=== PATIENT | female | born 1945 | race Caucasian/White ===

== ENCOUNTER 2016-12-01 17:35 | Observation (INO) | payer OTHER, BC ==
--- NOTE | 2016-12-01 18:11 | PDOC ---
History of Present Illness <Yusef Pizano - Last Filed: 12/01/16 22:04> - General History Source: Family, Old Records Exam Limitations: Dementia - History of Present Illness Initial Comments: 12/01/16 18:52 The patient is a 71 year old female, with a significant past medical history of dementia, diabetes and HTN, who presents to the emergency department for admission for dehydration, UTI, anorexia and violent aggressive behavior. The patient was recently in the ED on 11/29/2016 for decreased oral intake and was diagnosed with a UTI, prescribed her antibiotics. She was discharged same day to follow up with her PMD in order to arrange for a jail facility or visiting aide. The family states that the patient is very aggressive and refuses to eat. Upon presentation the patient is a poor historian. Allergies: None Past surgical history: None reported Social history: No alcohol, tobacco or drug use reported PMD - Dr. Maria M Chen <Krishna Allen - Last Filed: 12/01/16 23:11> - General Chief Complaint: Vomiting/Diarrhea Stated Complaint: PCP SENT/EVALUATION Time Seen by Provider: 12/01/16 18:10 Past History - Past Medical History Dementia: Yes Diabetes: Yes HTN: Yes - Psycho/Social/Smoking Cessation Hx Anxiety: No Suicidal Ideation: No Smoking History: Never smoked Have you smoked in the past 12 months: No Hx Alcohol Use: No Drug/Substance Use Hx: No Substance Use Type: None <Yusef Pizano - Last Filed: 12/01/16 22:04> <Krishna Allen - Last Filed: 12/01/16 23:11> - Past Medical History Allergies/Adverse Reactions: Allergies Allergy/AdvReac Type Severity Reaction Status Date / Time No Known Allergies Allergy Verified 12/01/16 17:43 Home Medications: Ambulatory Orders Lisinopril [Zestril] 0 mg PO DAILY 12/01/16 Memantine HCl [Namenda -] 0 mg PO DAILY 12/01/16 Metformin HCl [Metformin HCl ER] 0 mg PO DAILY 12/01/16 Rivastigmine [Exelon Patch 4.6MG/24 Hours -] 1 each TP DAILY 12/01/16 Review of Systems - Review of Systems Able to Perform ROS?: No Comments:: 12/01/16 18:52 ROS unattainable due to the patients dementia. <Krishna Allen - Last Filed: 12/01/16 23:11> *Physical Exam - Vital Signs Last Vital Signs Temp Pulse Resp BP Pulse Ox 98.5 F 103 H 18 133/70 96 12/01/16 17:39 12/01/16 17:39 12/01/16 17:39 12/01/16 17:39 12/01/16 17:39 <Yusef Pizano - Last Filed: 12/01/16 22:04> - Vital Signs Last Vital Signs Temp Pulse Resp BP Pulse Ox 98.5 F 103 H 18 133/70 96 12/01/16 17:39 12/01/16 17:39 12/01/16 17:39 12/01/16 17:39 12/01/16 17:39 - Physical Exam Comments: 12/01/16 23:11 GENERAL: Awake, alert, and oriented, in no acute distress HEAD: No signs of trauma, normocephalic, atraumatic EYES: PERRLA, EOMI, sclera anicteric, conjunctiva clear ENT: Auricles normal inspection, hearing grossly normal, nares patent, oropharynx clear without exudates. Moist mucosa NECK: Normal ROM, supple, no lymphadenopathy, JVD, or masses LUNGS: No distress, speaks full sentences, clear to auscultation bilaterally HEART: Regular rate and rhythm, normal S1 and S2, no murmurs, rubs or gallops, peripheral pulses normal and equal bilaterally. ABDOMEN: Soft, nontender, normoactive bowel sounds. No guarding, no rebound. No masses EXTREMITIES: Normal inspection, Normal range of motion, no edema. No clubbing or cyanosis. NEUROLOGICAL: Cranial nerves II through XII grossly intact. Normal speech, normal gait, no focal sensorimotor deficits SKIN: Warm, Dry, normal turgor, no rashes or lesions noted. <Krishna Allen - Last Filed: 12/01/16 23:11> ED Treatment Course - LABORATORY CBC & Chemistry Diagram: 12/01/16 18:00 12/01/16 21:10 <Yusef Pizano - Last Filed: 12/01/16 22:04> - LABORATORY CBC & Chemistry Diagram: 12/01/16 18:00 12/01/16 21:10 <Krishna Allen - Last Filed: 12/01/16 23:11> Medical Decision Making - Medical Decision Making 12/01/16 22:03 Dr. Prince was called regarding the patient at 9:40pm Dr. Prince was consulted regarding the patient at 9:41pm <Krishna Allen - Last Filed: 12/01/16 23:11> *DC/Admit/Observation/Transfer - Discharge Dispostion Admit: Yes - Attestations Physician Attestion: 12/01/16 18:10 I, Dr. Yusef Pizano, attest that this document has been prepared under my direction and personally reviewed by me in its entirety. I further attest, that it accurately reflects all work, treatment, procedures and medical decision -making performed by me. <Yusef Pizano - Last Filed: 12/01/16 22:04> - Attestations Scribe Attestion: 12/01/16 18:52 Documentation prepared by Krishna Allen, acting as territory sales manager medical for Yusef Pizano MD <Krishna Allen - Last Filed: 12/01/16 23:11> Diagnosis at time of Disposition: Advanced dementia - Discharge Dispostion Condition at time of disposition: Unchanged/Unknown - Referrals Referrals: Maria M Chen MD [Staff Physician] -
[2016-12-01] MEDS ORDERED: SODIUM CHLORIDE 1,000 ML IV SCH (18:15)
[2016-12-01 19:08] LABS: BASOPHIL 0.6 % (0-2.0); EOSINOPHIL 0.4 % (0-4.5); MCHC 31.9 g/dl (32.0-36.0); MEAN CELL VOLUME 84.6 fl (80-96); MEAN PLT VOLUME 9.8 fl (7.5-11.1); PLATELET COUNT 258 K/MM3 (134-434); RDW 13.9 % (11.6-15.6); WHITE BLOOD COUNT 9.5 K/mm3 (4.0-10.0)
[2016-12-01 19:17] LABS: URINE APPEARANCE SLCLOUDY; URINE BILIRUBIN NEGATIVE (NEGATIVE); URINE BLOOD NEGATIVE (NEGATIVE); URINE COLOR AMBER; URINE GLUCOSE (UA) NEGATIVE (NEGATIVE); URINE KETONE 2+ (NEGATIVE); URINE NITRITE NEGATIVE (NEGATIVE); URINE UROBILINOGEN 2.0 E.U/dl E.U./dl (0.2-1.0)
[2016-12-01 19:30] LABS: URINE LEUK ESTERASE TRACE (NEGATIVE); URINE PROTEIN 1+ (NEGATIVE)
[2016-12-01 19:32] LABS: URINE MUCUS MANY; URINE RBC 8 /hpf (0-3); URINE WBC 7 /hpf (3-5)
[2016-12-01 21:41] LABS: ALBUMIN 2.4 g/dl (3.4-5.0); ALK PHOS 34 U/L (45-117); ANION GAP 10 (8-16); BILIRUBIN,TOTAL 0.2 mg/dL (0.2-1.0); CO2 22 mmol/L (21-32); CREATININE 0.3 mg/dL (0.55-1.02); GLUCOSE,RANDOM 78 mg/dL (74-106); SGOT/AST 9 U/L (15-37); SGPT/ALT 13 U/L (12-78); TOT PROT 4.3 g/dl (6.4-8.2)
[2016-12-01 21:47] LABS: CALCIUM 6.2 mg/dL (8.5-10.1)
[2016-12-01] MEDS ORDERED: POTASSIUM CHLORIDE TABS 20 MEQ TABLET.ER (FP) PO ONE ×2 (22:01→22:38)
--- NOTE | 2016-12-01 22:10 | PN ---
<Chalino Rick - Last Filed: 12/01/16 22:10> Teaching Attending Note Name of Resident: Enrique Ortega ATTENDING PHYSICIAN STATEMENT I saw and evaluated the patient. I reviewed the resident's note and discussed the case with the resident. I agree with the resident's findings and plan as documented. SUBJECTIVE: OBJECTIVE: ASSESSMENT AND PLAN: <Marimar Pelletier - Last Filed: 12/02/16 00:30> Teaching Attending Note ATTENDING PHYSICIAN STATEMENT I saw and evaluated the patient. I reviewed the resident's note and discussed the case with the resident. I agree with the resident's findings and plan as documented. SUBJECTIVE: 71 yo F with a PMHx dementia, DM, HTN, anorexia, and violent aggressive behavior who presents with decreased PO intake and aggression as per family. Of note, patient was recently in ED and was sent home with antibiotics for UTI. Patients family states they are no longer able to take care of patient at their home. [facility] ([facility]) - [phone] OBJECTIVE: Last Vital Signs Temp Pulse Resp BP Pulse Ox 98.5 F 89 20 136/93 98 12/01/16 17:39 12/01/16 23:54 12/01/16 23:54 12/01/16 23:54 12/01/16 23:54 GENERAL: AOx1, in no acute distress. Dehydrated. HEENT: Atraumatic. PERRLA, EOMI. Dry mucosa. No JVD LUNGS: No distress, speaks full sentences, clear to auscultation bilaterally HEART: Regular rate and rhythm, normal S1 and S2, no murmurs, rubs or gallops, peripheral pulses normal and equal bilaterally. ABDOMEN: Soft, nontender, normoactive bowel sounds. No guarding, no rebound. No masses EXTREMITIES: Normal inspection, Normal range of motion, no edema. No clubbing or Cyanosis. NEUROLOGICAL: Cranial nerves II through XII grossly intact. Normal speech, normal gait, no focal sensorimotor deficits SKIN: Warm, Dry, poor turgor, no rashes or lesions noted. CBCD WBC 9.5 K/mm3 (4.0-10.0) 12/01/16 18:00 RBC 4.31 M/mm3 (3.60-5.2) 12/01/16 18:00 Hgb 11.6 GM/dL (10.7-15.3) 12/01/16 18:00 Hct 36.5 % (32.4-45.2) 12/01/16 18:00 MCV 84.6 fl (80-96) 12/01/16 18:00 MCHC 31.9 g/dl (32.0-36.0) L 12/01/16 18:00 RDW 13.9 % (11.6-15.6) 12/01/16 18:00 Plt Count 258 K/MM3 (134-434) 12/01/16 18:00 MPV 9.8 fl (7.5-11.1) 12/01/16 18:00 CMP Sodium 148 mmol/L (136-145) H 12/01/16 21:10 Potassium 2.8 mmol/L (3.5-5.1) L* 12/01/16 21:10 Chloride 116 mmol/L (98-107) H D 12/01/16 21:10 Carbon Dioxide 22 mmol/L (21-32) D 12/01/16 21:10 Anion Gap 10 (8-16) 12/01/16 21:10 BUN 6 mg/dL (7-18) L D 12/01/16 21:10 Creatinine 0.3 mg/dL (0.55-1.02) L D 12/01/16 21:10 Creat Clearance w eGFR > 60 (>60) 12/01/16 21:10 Calcium 6.2 mg/dL (8.5-10.1) L* D 12/01/16 21:10 Total Bilirubin 0.2 mg/dL (0.2-1.0) D 12/01/16 21:10 AST 9 U/L (15-37) L 12/01/16 21:10 ALT 13 U/L (12-78) D 12/01/16 21:10 Alkaline Phosphatase 34 U/L (45-117) L D 12/01/16 21:10 Total Protein 4.3 g/dl (6.4-8.2) L D 12/01/16 21:10 Albumin 2.4 g/dl (3.4-5.0) L D 12/01/16 21:10 ASSESSMENT AND PLAN: 71 yo F with a PMHx of dementia, DM, HTN, anorexia, and violent aggressive behavior who presents with decreased PO intake and aggression. 1.) AMS most likely due to worsening dementia vs delirium -Continue with treatment of UTI -Urine culture -Psych consult -Social consult for worsening dementia, possible placement -Continue with exelon patch -Patient noncompliant with Namenda -Check b12 folate -Check TSH 2.) Hypokalemia -Check stat Mg -Replete K+ -Check ECG 3.) HTN -Continue home meds 4.) NIDM -Continue metformin -Fingersticks -Nutrition consult -Insulin sliding scale 5.) Hypernatriemia -Free H20 deficit of 1.4 Liters -Mild -Continue with IVF -Check urine osmolality -Check urine lytes -D5W at a rate of 50/hr not to decrease the serum sodium over 10 milliequivalents in 24 hours 6.) Severe malnourishment -Nutrition consult 7.) Dehdyrationn -Gentle IVF DVT ppx -heparin 5000 Q8 Documentation prepared by Marimar Pelletier acting as medical manager for Chalino Rick D.O.
--- NOTE | 2016-12-01 22:58 | MSN ---
Admitting History and Physical - Admission Chief Complaint: Worsening behavioral symptoms History of Present Illness: Celina Mendes is a 71 yo female with PMHx of Advanced Dementia, HTN, DM who presents to the ED with her family for worsening behavioral symptoms. Pt was doing well until two weeks ago when she started to become aggressive towards her caregiver and grandchildren. Over the last four days she refuses to eat. Family reports they were only able to convince her to eat a few spoons of rice and MAXINE (vitamin drink) during this time. Pt was recently seen in the Emergency Department (11/29/16) for UTI. Family reports they do not know when her UTI symptoms started; but states pt has been using the bathroom every 20mins during the night over the past week. Pt was discharged on Macrobid 100mg BID. Pt refuses to take medication, but family states she has been getting her doses after much convincing. At this time pt complains of dysuria. Denies DANIELLE/F/C /Abd Pain/hematuria. ER Course: KCl 40 meq once History Source: Family Member Limitations to Obtaining History: Dementia - Past Medical History POLYSOMNOGRAPHER: Yes: Dementia Cardiovascular: Yes: HTN Endocrine: Yes: Diabetes Mellitus - Smoking History Smoking history: Never smoked Have you smoked in the past 12 months: No - Alcohol/Substance Use Hx Alcohol Use: No Home Medications - Allergies Allergies/Adverse Reactions: Allergies Allergy/AdvReac Type Severity Reaction Status Date / Time No Known Allergies Allergy Verified 12/01/16 17:43 - Home Medications Home Medications: Ambulatory Orders Lisinopril [Zestril] 0 mg PO DAILY 12/01/16 Memantine HCl [Namenda -] 0 mg PO DAILY 12/01/16 Metformin HCl [Metformin HCl ER] 0 mg PO DAILY 12/01/16 Rivastigmine [Exelon Patch 4.6MG/24 Hours -] 1 each TP DAILY 12/01/16 Physical Examination Vital Signs: Vital Signs Temperature 98.5 F 12/01/16 17:39 Pulse Rate 103 H 12/01/16 17:39 Respiratory Rate 18 12/01/16 17:39 Blood Pressure 133/70 12/01/16 17:39 O2 Sat by Pulse Oximetry (%) 96 12/01/16 17:39 Constitutional: Yes: Calm, Cachectic, Thin Eyes: Yes: Conjunctiva Clear, EOM Intact HENT: Yes: Atraumatic, Normocephalic Cardiovascular: Yes: Regular Rate and Rhythm Respiratory: Yes: Regular, CTA Bilaterally Gastrointestinal: Yes: Normal Bowel Sounds, Soft. No: Tenderness Edema: No Peripheral Pulses WNL: Yes Peripheral Pulses: Left Radial: 2+, Right Radial: 2+, Left Doralis Pedis: 2+, Right Dorsalis Pedis: 2+ Neurological: Yes: Alert. No: Oriented Psychiatric: Yes: Alert. No: Oriented Labs: CBC, BMP 12/01/16 18:00 12/01/16 21:10 Imaging - Results Chest X-ray: Other (No new images reviewed at this time) Assessment/Plan 71 yo F with PMHx of Advanced Dementia, HTN, DM presented to the ED with her family for worsening behavioral symptoms. UTI -Continue Macrobid 100mg BID x3 days; if pt non-compliant IV Rocephin -UCx pending Dementia -Behavioral disturbance likely 2/2 UTI -Start Home Meds, confirm dose with pharmacy -Namenda 5mg -Exelon Patch 4.6mg DM -Hold Metformin 1000mg -Insulin sliding scale HTN -Lisinopril 2.5mg FEN -Monitor Electrolytes -Replete K -NS Social Work -Placement in halfway or VNS
--- NOTE | 2016-12-01 23:08 | HP ---
CHIEF COMPLAINT: poor po intake, aggressive behavior PCP: Maria M Delgado HISTORY OF PRESENT ILLNESS: 71 yr old american speaking woman with dementia with aggressive behavior, NIDDM, HTN, brought in by family for decreased oral intake due to loss of appetite, aggressive behavior towards family and refusal in medication compliance for the past 4 days. She was recently seen in the ED and found to have UTI, she was discharged with macrobid 100mg po BID on 11/29. Family noticed for the last week she has been having frequent urination with nocturia. Since yesterday she has been having increased burping and "gases" in her abdomen. Patient denies abdominal pain, hematuria, vomiting, fever, diarrhea/constipation , nausea, incontinence. She is alert, oriented to person, month, year, age birthday, city, recognizes sister and nieces, not to place, day/date/condition. She was brought in on the 11/29 due to decreased oral intake and aggressive behavior. She lives with her sister and her nieces help take care of her, her several years ago. She has two children in [place]. She does not have a healthcare proxy and per Dr. Chen, she does not have capacity. Over the last 2 months she has lost significant amount weight and overall decline in oral intake. She has not had a colonoscopy. ER course was notable for: (1) EKG (2) hypokalemia Recent Travel: none PAST MEDICAL HISTORY: NIDDM - controlled as per family HTN Dementia PAST SURGICAL HISTORY: none Social History: Smoking: never Alcohol: denies Drugs: denies Family History: Mother with dementia, two aunts with dementia sister with HTN and DM denies family history of cancer. Allergies No Known Allergies Allergy (Verified 12/01/16 17:43) HOME MEDICATIONS: Home Medications Medication Instructions Recorded Lisinopril [Zestril] 0 mg PO DAILY 12/01/16 Memantine HCl [Namenda -] 0 mg PO DAILY 12/01/16 Metformin HCl [Metformin HCl ER] 0 mg PO DAILY 12/01/16 Rivastigmine [Exelon Patch 1 each TP DAILY 12/01/16 4.6MG/24 Hours -] REVIEW OF SYSTEMS CONSTITUTIONAL: Present: loss of appetite, weight change Absent: fever, chills, diaphoresis, generalized weakness, malaise, HEENT: Absent: rhinorrhea, nasal congestion, throat pain, throat swelling, difficulty swallowing, mouth swelling, ear pain, eye pain, visual changes CARDIOVASCULAR: Absent: chest pain, syncope, palpitations, irregular heart rate, lightheadedness , peripheral edema RESPIRATORY: Absent: cough, shortness of breath, dyspnea with exertion, orthopnea, wheezing, stridor, hemoptysis GASTROINTESTINAL: Absent: abdominal pain, abdominal distension, nausea, vomiting, diarrhea, constipation, melena, hematochezia GENITOURINARY: Present: dysuria, frequency, Absent: urgency, hesitancy, hematuria, flank pain, genital pain MUSCULOSKELETAL: Absent: myalgia, arthralgia, joint swelling, back pain, neck pain SKIN: Absent: rash, itching, pallor HEMATOLOGIC/IMMUNOLOGIC: Absent: easy bleeding, easy bruising, lymphadenopathy, frequent infections ENDOCRINE: Present: cold intolerance Absent: unexplained weight gain, unexplained weight loss, heat intolerance, NEUROLOGIC: Present:mental status changes, Absent: headache, focal weakness or paresthesias, dizziness, unsteady gait, seizure, bladder or bowel incontinence PHYSICAL EXAMINATION Vital Signs - 24 hr 12/01/16 17:39 Temperature 98.5 F Pulse Rate 103 H Respiratory 18 Rate Blood Pressure 133/70 O2 Sat by Pulse 96 Oximetry (%) GENERAL: cachectic elderly woman, Awake, alert, in no acute distress. HEAD: Normal with no signs of trauma. bitemporal wasting EYES: Pupils equal, round and reactive to light, extraocular movements intact, sclera anicteric, conjunctiva clear. No lid lag. EARS, NOSE, THROAT: Ears normal, nares patent, oropharynx clear without exudates /lesions. dry mucous membranes. NECK: Normal range of motion, supple without lymphadenopathy, JVD, or masses. no carotid bruits LUNGS: Breath sounds equal, clear to auscultation bilaterally. No wheezes, and no crackles. No accessory muscle use. HEART: Regular rate and rhythm, normal S1 and S2 without murmur, rub or gallop. ABDOMEN: Soft, nontender, not distended, normoactive bowel sounds, no guarding, no rebound, no masses. No hepatomegaly or splenomegaly. MUSCULOSKELETAL: Normal range of motion at all joints. No bony deformities or tenderness. No CVA tenderness. UPPER EXTREMITIES: 2+ pulses, warm, well-perfused. No cyanosis. No clubbing. No peripheral edema. LOWER EXTREMITIES: 2+ pulses, warm, well-perfused. No calf tenderness. No peripheral edema. NEUROLOGICAL: Cranial nerves II-XII intact. Normal speech. Normal gait. PSYCHIATRIC: Cooperative. Good eye contact. Appropriate mood and affect. SKIN: Warm, dry, poor turgor, no rashes or lesions noted, normal capillary refill. Laboratory Results - last 24 hr 12/01/16 12/01/16 12/01/16 18:00 18:00 19:00 WBC 9.5 RBC 4.31 Hgb 11.6 Hct 36.5 MCV 84.6 MCHC 31.9 L RDW 13.9 Plt Count 258 MPV 9.8 Neutrophils % 65.0 Lymphocytes % 26.5 Monocytes % 7.5 Eosinophils % 0.4 Basophils % 0.6 Sodium Cancelled Potassium Cancelled Chloride Cancelled Carbon Dioxide Cancelled Anion Gap Cancelled BUN Cancelled Creatinine Cancelled Creat Clearance w eGFR Cancelled Random Glucose Cancelled Calcium Cancelled Total Bilirubin Cancelled AST Cancelled ALT Cancelled Alkaline Phosphatase Cancelled Total Protein Cancelled Albumin Cancelled Lipase Cancelled Urine Color Agata Urine Appearance Slcloudy Urine pH 5.0 Ur Specific [place] 1.028 Urine Protein 1+ H Urine Glucose (UA) Negative Urine Ketones 2+ H Urine Blood Negative Urine Nitrite Negative Urine Bilirubin Negative Urine Urobilinogen 2.0 e.u/dl H Ur Leukocyte Esterase Trace H D Urine RBC 8 Urine WBC 7 Ur Epithelial Cells Rare Urine Mucus Many 12/01/16 21:10 WBC RBC Hgb Hct MCV MCHC RDW Plt Count MPV Neutrophils % Lymphocytes % Monocytes % Eosinophils % Basophils % Sodium 148 H Potassium 2.8 L* Chloride 116 H D Carbon Dioxide 22 D Anion Gap 10 BUN 6 L D Creatinine 0.3 L D Creat Clearance w eGFR > 60 Random Glucose 78 D Calcium 6.2 L* D Total Bilirubin 0.2 D AST 9 L ALT 13 D Alkaline Phosphatase 34 L D Total Protein 4.3 L D Albumin 2.4 L D Lipase 125 Urine Color Urine Appearance Urine pH Ur Specific [place] Urine Protein Urine Glucose (UA) Urine Ketones Urine Blood Urine Nitrite Urine Bilirubin Urine Urobilinogen Ur Leukocyte Esterase Urine RBC Urine WBC Ur Epithelial Cells Urine Mucus ASSESSMENT/PLAN: 71 yr old woman with dementia, HTN, NIDDM, being treated for UTI, brought in by family for poor po intake and aggressive behavior admitted for hypokalemia/ hypocalcemia/hypernatremia/hypomag and dehydration. - labs 11/29 did not show hypoalbunemia/hypocalcemia/hypomag #Altered mental status secondary to progression of dementia vs delirium due to UTI - r/o metabolic causes; TSH, vitamin B12, folate - psych consult for medication recommendations for agitation - discuss with social work for penitentiary placement/home assistance; family no longer feels able to care for patient at home #UTI - change from bactrim to rocephin 1gm ivpb daily due to po noncompliance - f/u urine culture #Hypokalemia - repleted in ED, 40meq kdur po #Hypomag - 1g mag sulfate ivpb - magox po 400mg daily #Hypocalcemia - oscal 250/125 1 tablet po daily #Hypernatremia - likely due to poor po intake - D5W at a rate of 50ml/hr not to decrease the serum sodium over 10 milliequivalents in 24 hours - urine osm/lytes for further evalutation #Dementia - Namenda 5mg po daily - Exelon patch apply daily - fall risk precautions #NIDDM - metformin 1000mg 1tablet po daily - BGM ACHS - NISS ACHS #HTN - lisinopril 5mg po daily #Severe malnutrition - nutrition consult #belching - mylicon 80mg po once Diet: low sodium/diabetic DVT: heparin Visit type - Emergency Visit Emergency Visit: Yes ED Registration Date: 12/02/16 Care time: The patient presented to the Emergency Department on the above date and was hospitalized for further evaluation of their emergent condition. - New Patient This patient is new to me today: Yes Date on this admission: 12/02/16 - Critical Care Critical Care patient: No
[2016-12-02] MEDS ORDERED: MAGNESIUM SULF 50% (8.12 MEQ/2 ML-1 GM VIAL) IVPB ONE (00:07)
[2016-12-02] MEDS ORDERED: MAGNESIUM OXIDE 400 MG TABLET (FP) PO ONE (00:09)
[2016-12-02] MEDS ORDERED: MAG HYDROX/AL HYDROX/SIMETH 30 ML UNIT-DOSE CUP PO ONE (00:10)
[2016-12-02] MEDS ORDERED: MAGNESIUM OXIDE 400 MG TABLET (FP) ONE (00:16)
[2016-12-02 01:07] VITALS: BMI 18.5
[2016-12-02] MEDS: cefTRIAXone 1 GM/50 ML BAG (PRE-DOCKED) IVPB SCH ×2 (01:37→09:07)
[2016-12-02] MEDS ORDERED: SIMETHICONE 80 MG TAB.CHEW (FP) PO ONE (04:09)
[2016-12-02] MEDS ORDERED: DEXTROSE 5%-WATER - 1,000 ML IV SCH (04:45)
[2016-12-02] MEDS: HEPARIN NA (PORCINE) 5,000 UNITS/ML 1ML VIAL SQ SCH ×2 (05:58→14:13)
[2016-12-02] MEDS: INSULIN SLIDING SCALE (NOVOLOG) 1 VIAL SQ SCH ×3 (06:00→16:39)
[2016-12-02 09:08] LABS: CALCIUM 9.1 mg/dL (8.5-10.1); COCKROFT - GAULT 62.2115; CREATININE 0.6 mg/dL (0.55-1.02); MAGNESIUM 2.3 mg/dL (1.8-2.4)
[2016-12-02] MEDS ORDERED: MEMANTINE HCL 5 MG TABLET (UD) PO SCH (10:00)
[2016-12-02] MEDS ORDERED: PATIENT'S OWN MEDICATION (NON-FORMULARY) (Rivastigmine 1 EACH) TP SCH (10:00)
[2016-12-02] MEDS ORDERED: CALCIUM 250MG/VIT-D 125 UNITS 1 COMBO TABLET PO SCH (10:00)
[2016-12-02] MEDS ORDERED: ENOXAPARIN NA (PORCINE) 40 MG/0.4 ML DISP.SYRIN SQ SCH (10:00)
[2016-12-02] MEDS ORDERED: MAGNESIUM OXIDE 400 MG TABLET (FP) PO SCH (10:00)
[2016-12-02] MEDS ORDERED: LISINOPRIL 5 MG TABLET (FP) PO SCH (10:00)
[2016-12-02] MEDS ORDERED: INSULIN (NOVOLOG) ASPART 100 UNITS/ML 10ML VIAL ONE ×2 (11:36→16:35)
--- NOTE | 2016-12-02 13:27 | EKG ---
Test Reason : Blood Pressure : / mmHG Vent. Rate : 092 BPM Atrial Rate : 092 BPM P-R Int : 134 ms QRS Dur : 074 ms QT Int : 364 ms P-R-T Axes : 017 064 031 degrees QTc Int : 450 ms NORMAL SINUS RHYTHM NORMAL ECG WHEN COMPARED WITH ECG OF 29-NOV-2016 17:10, PREMATURE VENTRICULAR COMPLEXES ARE NO LONGER PRESENT Confirmed by JOSEFA PAREDES MD ([id number]) on 12/02/2016 1:26:34 PM Referred By: Confirmed By:JOSEFA PAREDES MD
[2016-12-02 13:59] VITALS: BP 136/57; PULSE 88; TEMP 97.7
--- NOTE | 2016-12-02 15:18 | DS ---
Physical Exam: SUBJECTIVE: Patient seen and examined Resting in chair NAD. Afebrile and demodynamically satble. No acute events. Has been calm and cooperative. observed walking in hallway w/o problem. alert and interactive but confused. does not know where she is, wrong about her age and year. This is mental baseline per family. Eating all her meals. denies dysuria, flank pain, genita pain, abd pain, frequency, chest pain, sob, h/a, f/c. OBJECTIVE: Vital Signs Period Temp Pulse Resp BP Sys/Foss Pulse Ox Last 24 Hr 97.7 F-98.3 F 79-89 20-20 120-148/56-93 98-98 PHYSICAL EXAM GENERAL: The patient is pleasant, awake, alert, disoriented, in no acute distress. HEAD: Normal with no signs of trauma. EYES: PERRL, extraocular movements intact, sclera anicteric, conjunctiva clear. ENT: moist mucous membranes. NECK: supple. LUNGS: Breath sounds equal, clear to auscultation bilaterally HEART: Regular rate and rhythm, S1, S2 ABDOMEN: Soft, nontender, nondistended, normoactive bowel sounds, no cva tenderness EXTREMITIES: 2+ pulses, warm, well-perfused, no edema. NEUROLOGICAL: Cranial nerves II through XII grossly intact. Normal speech, normal gait. PSYCH: Normal mood, normal affect. SKIN: Warm, dry LABS Laboratory Results - last 24 hr 12/02/16 12/02/16 12/02/16 05:55 06:00 06:00 Sodium Potassium Chloride Carbon Dioxide Anion Gap BUN Creatinine POC Glucometer 112 Random Glucose Calcium Magnesium Vitamin B12 Serum Folate Urine Osmolality 292 L Ur Random Sodium 108 Ur Random Potassium 9.0 Ur Random Chloride 113 12/02/16 12/02/16 12/02/16 07:40 07:40 07:40 Sodium 141 Potassium 4.0 D Chloride 103 D Carbon Dioxide 27 D Anion Gap 11 BUN 6 L Creatinine 0.6 D POC Glucometer Random Glucose 147 H D Calcium 9.1 D Magnesium 2.3 D Vitamin B12 887 Cancelled Serum Folate 25 H Cancelled Urine Osmolality Ur Random Sodium Ur Random Potassium Ur Random Chloride 12/02/16 11:34 Sodium Potassium Chloride Carbon Dioxide Anion Gap BUN Creatinine POC Glucometer 174 Random Glucose Calcium Magnesium Vitamin B12 Serum Folate Urine Osmolality Ur Random Sodium Ur Random Potassium Ur Random Chloride HOSPITAL COURSE: Date of Admission:12/01/16 This is a 71 yr F with pmh of dementia NIDDM and HTN, who visited ER 3 d ago for uti and was sent home on macrobid, now brought in by family for decreased oral intake due to loss of appetite, aggressive behavior towards family and refusal in medication compliance for the past 4 days. She was placed in obs for mildly altered mental status. labs showed no uti and her mental state was baseline confused but calm and pleasant, her appetite was adequate. Her low potassium was repleted. She was discharged home with VNS and instructed to finish course of macrobid previously prescribed. Date of Discharge: 12/02/16 Minutes to complete discharge: 45 (na) Discharge Summary Reason For Visit: URINARY TRACT INFECTION ADVANCED DEMENTIA ALTERED Current Active Problems Advanced dementia (Acute) Condition: Stable - Instructions Diet, Activity, Other Instructions: You were in the hospital to make sure your lack of appetite and behavioral changes were not due to infection. Based on out findings, your urinary infection appears resolved but finish antibiotic Macrobid at home. You can restart other home medication. Follow up with primary care doctor in 1 week. Return to hospital if severe symptoms occur Usted estaba en el hospital para asegurarse de que cyr falta de apetito y cambios de comportamiento no se deban a la infeccin. Sobre la base de los resultados, cyr infeccin urinaria parece resuelto, tucker terminar antibitico Macrobid en casa. Puede reiniciar otra medicacin en el hogar. Seguimiento con el mdico de atencin primaria en 1 semana. Regreso al hospital si ocurren sntomas severos Referrals: Maria M Chen MD [Staff Physician] - 1 Week Disposition: VNS/HOME HEALTH CARE - Home Medications Comprehensive Discharge Medication List: Ambulatory Orders Exelon Patch 9.5 mg/24 Hours - 9.5 TD 12/02/16 Lisinopril [Zestril] 20 mg PO DAILY 12/02/16 Memantine HCl [Namenda -] 10 mg PO BID #0 tab 12/02/16 Metformin HCl 500 mg PO BID 12/02/16 Multivit-Min/Iron Fum/Folic AC [Udrnj-Fkiplop-Jwcrmodu Tablet] 1 tab PO DAILY Vitamin E 400 unit PO DAILY 12/02/16 Problem List - Problems (1) Advanced dementia Code(s): F03.90 - UNSPECIFIED DEMENTIA WITHOUT BEHAVIORAL DISTURBANCE (2) HTN (hypertension) Code(s): I10 - ESSENTIAL (PRIMARY) HYPERTENSION (3) Diabetes Code(s): E11.9 - TYPE 2 DIABETES MELLITUS WITHOUT COMPLICATIONS This patient is new to me today: Yes Date on this admission: 12/02/16 Emergency Visit: Yes ED Registration Date: 12/01/16 Care time: The patient presented to the Emergency Department on the above date and was hospitalized for further evaluation of their emergent condition. Critical Care patient: No - Discharge Referral Referred to [facility] Med P.C.: No
--- NOTE | 2016-12-02 19:02 | PN ---
Teaching Attending Note Name of Resident: Bambi Archibald ATTENDING PHYSICIAN STATEMENT I saw and evaluated the patient. I reviewed the resident's note and discussed the case with the resident. I agree with the resident's findings and plan as documented. Patient is demented , does not know where she is. Vital Signs Temperature 97.7 F 12/02/16 13:57 Pulse Rate 88 12/02/16 13:57 Respiratory Rate 20 12/02/16 08:00 Blood Pressure 136/57 12/02/16 13:57 O2 Sat by Pulse Oximetry (%) 98 12/02/16 08:00 CBCD WBC 9.5 K/mm3 (4.0-10.0) 12/01/16 18:00 RBC 4.31 M/mm3 (3.60-5.2) 12/01/16 18:00 Hgb 11.6 GM/dL (10.7-15.3) 12/01/16 18:00 Hct 36.5 % (32.4-45.2) 12/01/16 18:00 MCV 84.6 fl (80-96) 12/01/16 18:00 MCHC 31.9 g/dl (32.0-36.0) L 12/01/16 18:00 RDW 13.9 % (11.6-15.6) 12/01/16 18:00 Plt Count 258 K/MM3 (134-434) 12/01/16 18:00 MPV 9.8 fl (7.5-11.1) 12/01/16 18:00 CMP Sodium 141 mmol/L (136-145) 12/02/16 07:40 Potassium 4.0 mmol/L (3.5-5.1) D 12/02/16 07:40 Chloride 103 mmol/L (98-107) D 12/02/16 07:40 Carbon Dioxide 27 mmol/L (21-32) D 12/02/16 07:40 Anion Gap 11 (8-16) 12/02/16 07:40 BUN 6 mg/dL (7-18) L 12/02/16 07:40 Creatinine 0.6 mg/dL (0.55-1.02) D 12/02/16 07:40 Creat Clearance w eGFR > 60 (>60) 12/01/16 21:10 Random Glucose 147 mg/dL (74-106) H D 12/02/16 07:40 Calcium 9.1 mg/dL (8.5-10.1) D 12/02/16 07:40 Total Bilirubin 0.2 mg/dL (0.2-1.0) D 12/01/16 21:10 AST 9 U/L (15-37) L 12/01/16 21:10 ALT 13 U/L (12-78) D 12/01/16 21:10 Alkaline Phosphatase 34 U/L (45-117) L D 12/01/16 21:10 Total Protein 4.3 g/dl (6.4-8.2) L D 12/01/16 21:10 Albumin 2.4 g/dl (3.4-5.0) L D 12/01/16 21:10 Home Medications Medication Instructions Recorded Exelon Patch 9.5 mg/24 Hours - 9.5 TD 12/02/16 Lisinopril [Zestril] 20 mg PO DAILY 12/02/16 Memantine HCl [Namenda -] 10 mg PO BID #0 tab 12/02/16 Metformin HCl 500 mg PO BID 12/02/16 Multivit-Min/Iron Fum/Folic AC 1 tab PO DAILY 12/02/16 [Pjekv-Btmzynm-Uccpvvhz Tablet] Vitamin E 400 unit PO DAILY 12/02/16 ASSESSMENT AND PLAN: 71 yo F with a PMHx of dementia, DM, HTN, anorexia, and violent aggressive behavior who presents with decreased PO intake and aggression. # Worsening dementia with hx of dementia continue meds # Hypokalemia improved # HTN Continue home meds # NIDM Continue metformin # acute Hypernatriemia improved post IVF # Severe malnourishment # s/p Acute Dehdyrationn s/p IVF improved will discharge patient home with VNS services
== END 2016-12-02 18:04 | disposition home health service (06) ==
LOC: JER 17:35 → INTOOBSV 22:05 → UNDOADMOB 22:05 → JERBED 22:05 → UNDOADMIN 23:47 → JERBED 12-02 01:32 → J6S 12-02 01:32 → JERBED 12-02 15:17
PROVIDERS: ADMIT Internal Medicine; ATTEND Internal Medicine
PROC: 3E03329 Introduction of Other Anti-infective into Peripheral Vein, Percutaneous Approach (ICD-10-PCS; principal; 2016-12-02)
PROC: 3E013GC Introduction of Other Therapeutic Substance into Subcutaneous Tissue, Percutaneous Approach (ICD-10-PCS; 2016-12-02)
PROC: 3E033GC Introduction of Other Therapeutic Substance into Peripheral Vein, Percutaneous Approach (ICD-10-PCS; 2016-12-02)
PROC: 3E0337Z Introduction of Electrolytic and Water Balance Substance into Peripheral Vein, Percutaneous Approach (ICD-10-PCS; 2016-12-02)
DX: F03.91 Unspecified dementia, unspecified severity, with behavioral disturbance (principal); I10 Essential (primary) hypertension; E11.9 Type 2 diabetes mellitus without complications; R63.0 Anorexia; R45.6 Violent behavior; N39.0 Urinary tract infection, site not specified; E87.6 Hypokalemia; R41.82 Altered mental status, unspecified; E87.1 Hypo-osmolality and hyponatremia; E43 Unspecified severe protein-calorie malnutrition; Z68.1 Body mass index [BMI] 19.9 or less, adult; E86.0 Dehydration; E87.0 Hyperosmolality and hypernatremia; R14.2 Eructation; E83.51 Hypocalcemia; E83.42 Hypomagnesemia
CPT/HCPCS: 36415; 70450-TC; 71010-TC; 80048; 80053; 81003; 81015; 82436; 82607; 82746; 83690; 83735; 83935; 84133; 84300; 85025; 85610; 87086; 93005; 93010; 96360; 99282-25; 99283-25; G0378; J1644

== ENCOUNTER 2016-12-25 12:15 | Emergency (ER) | payer OTHER, BC ==
[2016-12-25 12:33] VITALS: TEMP 98.5; BMI 21.2
[2016-12-25 13:28] LABS: URINE APPEARANCE CLEAR; URINE BILIRUBIN NEGATIVE (NEGATIVE); URINE BLOOD NEGATIVE (NEGATIVE); URINE COLOR LTYELLOW; URINE GLUCOSE (UA) 2+ (NEGATIVE); URINE KETONE NEGATIVE (NEGATIVE); URINE LEUK ESTERASE NEGATIVE (NEGATIVE); URINE NITRITE NEGATIVE (NEGATIVE); URINE PROTEIN NEGATIVE (NEGATIVE); URINE UROBILINOGEN NEGATIVE E.U./dl (0.2-1.0)
--- NOTE | 2016-12-25 13:39 | PDOC ---
History of Present Illness - General Chief Complaint: Vaginal Bleeding Stated Complaint: BLOOD IN URINE Time Seen by Provider: 12/25/16 12:50 - History of Present Illness Initial Comments: 12/25/16 13:39 CHIEF COMPLAINT: vaginal bleeding HISTORY OF PRESENT ILLNESS: 71 yo F with hx of dementia, diabetes and HTN presents to ED with vaginal bleeding since yesterday. Per patient's sister, there was "just a little bleeding yesterday" but today "there was a lot of blood when she was showering." Patient has no complaints at this time and denies any pain, shortness of breast, dizziness, headache, lightheadnesses, nausea, vomiting, rectal bleeding. No recent travel or sick contacts. PAST MEDICAL HISTORY: as per HPI SOCIAL HISTORY: Denies tobacco, alcohol, illicit drug use. SURGICAL HISTORY: Denies ALLERGIES: No known drug allergies REVIEW OF SYSTEMS General/Constitutional: Denies fever or chills. Denies weakness, weight change. HEENT: Denies change in vision. Denies ear pain or discharge. Denies sore throat. Cardiovascular: Denies chest pain or shortness of breath. Respiratory: Denies cough, wheezing, or hemoptysis. Gastrointestinal: Denies nausea, vomiting, diarrhea or constipation. Denies rectal bleeding. Genitourinary: Vaginal bleeding. Denies dysuria, frequency, or change in urination. Musculoskeletal: Denies joint or muscle swelling or pain. Denies neck or back pain. Skin and breasts: Denies rash or easy bruising. Neurologic: Denies headache, vertigo, loss of consciousness, or loss of sensation. PHYSICAL EXAM General Appearance: Well-appearing, appropriately dressed. No apparent distress. HEENT: EOMI, PERRLA, normal ENT inspection, normal voice, TMs normal, pharynx normal. No conjunctival pallor. No photophobia, scleral icterus. Neck: Supple. Trachea midline. No tenderness, rigidity, carotid bruit, stridor , lymphadenopathy, or thyromegaly. Respiratory/Chest: Lungs CTAB. Cardiovascular: RRR. S1, S2. Gastrointestinal/Abdominal: Normal bowel sounds. Abdomen soft, non-distended. No tenderness or rebound tenderness. No organomegaly, pulsatile mass, guarding , hernia, hepatomegaly, splenomegaly. Lymphatic: No adenopathy, tenderness. Musculoskeletal/Extremities: Normal inspection. FROM of all extremities, normal capillary refill. Pelvis Stable. No CVA tenderness. No tenderness to extremities, pedal edema, swelling, erythema or deformity. Integumentary: Appropriate color, dry, warm. No cyanosis, erythema, jaundice or rash Neurologic: admissions assistant II-XII intact. Fully oriented, alert. Appropriate mood/affect. Motor strength 5/5. No appreciable EOM palsy, facial droop or sensory deficit. 12/25/16 13:44 Past History - Past Medical History Allergies/Adverse Reactions: Allergies Allergy/AdvReac Type Severity Reaction Status Date / Time No Known Allergies Allergy Verified 12/01/16 17:43 Home Medications: Ambulatory Orders Lisinopril [Zestril] 20 mg PO DAILY 12/02/16 Memantine HCl [Namenda -] 10 mg PO BID #0 tab 12/02/16 Metformin HCl 500 mg PO BID 12/02/16 Vitamin E 400 unit PO DAILY 12/02/16 Dementia: Yes Diabetes: Yes HTN: Yes - Psycho/Social/Smoking Cessation Hx Anxiety: No Suicidal Ideation: No Smoking History: Never smoked Have you smoked in the past 12 months: No Information on smoking cessation initiated: No Hx Alcohol Use: No Drug/Substance Use Hx: No Substance Use Type: None *Physical Exam - Vital Signs Last Vital Signs Temp Pulse Resp BP Pulse Ox 98.5 F 97 H 18 129/52 100 12/25/16 12:31 12/25/16 12:31 12/25/16 12:31 12/25/16 12:31 12/25/16 12:31 ED Treatment Course - LABORATORY CBC & Chemistry Diagram: 12/25/16 14:00 12/25/16 14:00 Medical Decision Making - Medical Decision Making 71 yo F with hx of dementia, diabetes and HTN presents to ED with vaginal bleeding since yesterday. Exam unremarkable, no bleeding on exam. -CBC, CMP -UA, UCx UA negative for blood. Labs unremarkable. Advised patient and family to f/u with CUSTOM FRAME ASSEMBLER for further evaluation. Patient and family verbalized understanding and agree to plan. *DC/Admit/Observation/Transfer Diagnosis at time of Disposition: Vaginal bleeding - Discharge Dispostion Disposition: HOME Admit: No - Referrals Referrals: Maria M Chen MD [Primary Care Provider] - - Patient Instructions Printed Discharge Instructions: DI for Vaginal Bleeding Additional Instructions: Please follow up with your primary care doctor and bulk picker by the end of the week. If you experience any dizziness, lightheadedness, nausea, severe vaginal bleeding (more than one soaked pad an hour),rectal bleeding, or any new or worsening symptoms, please return to the ER immediately.
[2016-12-25 14:09] LABS: BASOPHIL 0.2 % (0-2.0); EOSINOPHIL 0.3 % (0-4.5); MCH 27.3 pg (25.7-33.7); MCHC 32.2 g/dl (32.0-36.0); MEAN CELL VOLUME 84.7 fl (80-96); NEUTROPHILS 78.7 % (42.8-82.8); PLATELET COUNT 227 K/MM3 (134-434); RDW 13.5 % (11.6-15.6)
[2016-12-25 14:24] LABS: INR 1.05 (0.82-1.09); PROTHROMBIN TIME (PATIENT) 11.6 SEC (9.98-11.88)
[2016-12-25 14:36] LABS: ALBUMIN 3.8 g/dl (3.4-5.0); ALK PHOS 49 U/L (45-117); ANION GAP 10 (8-16); BILIRUBIN,TOTAL 0.2 mg/dL (0.2-1.0); CALCIUM 9.1 mg/dL (8.5-10.1); CO2 32 mmol/L (21-32); CREATININE 0.8 mg/dL (0.55-1.02); GLUCOSE,RANDOM 133 mg/dL (74-106); SGOT/AST 12 U/L (15-37); SGPT/ALT 21 U/L (12-78); TOT PROT 6.7 g/dl (6.4-8.2)
[2016-12-25 16:56] VITALS: BP 153/84; PULSE 107
== END 2016-12-25 16:51 | disposition home or self-care (01) ==
LOC: JER 12:15
DX: N93.8 Other specified abnormal uterine and vaginal bleeding (principal); I10 Essential (primary) hypertension; E11.9 Type 2 diabetes mellitus without complications; Z79.84 Long term (current) use of oral hypoglycemic drugs; F03.90 Unspecified dementia, unspecified severity, without behavioral disturbance, psychotic disturbance, mood disturbance, and anxiety
CPT/HCPCS: 36415; 76856-TC; 80053; 81003; 85025; 85610; 86850; 86900; 86901; 87086; 99284-25

== ENCOUNTER 2017-04-24 16:08 | Emergency (ER) | payer OTHER, BC ==
[2017-04-24 16:14] VITALS: BMI 16.1
--- NOTE | 2017-04-24 16:48 | PDOC ---
History of Present Illness - General History Source: Family (Daughter) Exam Limitations: No Limitations - History of Present Illness Initial Comments: 04/24/17 17:30 Patient is a 71 year old woman with a significant past medical history of dementia with aggressive behavior, NIDDM, HTN who presents to the ED with complaints of constipation beginning 3 days ago. Patient's daughter reports patient was unable to void bowels for three days while at home. Daughter states the patient has experienced diffuse abdominal pain secondary to constipation. Patients great grandson reports patient was found lying on the ground unresponsive complaining of abdominal pain. Patient's daughter reports patients hemorrhoids popped out while patient strained on toiled attempting to defecate. Family reports patient has only been given stool softener to relieve bowels. Denies chest pain, SOB. Denies nausea, fever. Denies chills, vomiting. Denies any other symptoms. Allergies: None Social history: No smoking, No alcohol. No drugs. Mother with dementia, two aunts with dementia sister with HTN and DM. Surgical history: None PMD: Dr. Chen <Tony Benavides - Last Filed: 04/24/17 17:29> <Yusef Pizano - Last Filed: 04/25/17 11:07> - General Chief Complaint: Weakness Stated Complaint: bladder distended,constipation EVALUATION Time Seen by Provider: 04/24/17 16:48 Past History <Tony Benavides - Last Filed: 04/24/17 17:29> - Past Medical History Dementia: Yes Diabetes: Yes HTN: Yes - Suicide/Smoking/Psychosocial Hx Anxiety: No Suicidal Ideation: No Smoking History: Never smoked Have you smoked in the past 12 months: No Information on smoking cessation initiated: No Hx Alcohol Use: No Drug/Substance Use Hx: No Substance Use Type: None <Yusef Pizano - Last Filed: 04/25/17 11:07> - Past Medical History Allergies/Adverse Reactions: Allergies Allergy/AdvReac Type Severity Reaction Status Date / Time No Known Allergies Allergy Verified 04/24/17 16:10 Home Medications: Ambulatory Orders Lisinopril [Zestril] 20 mg PO DAILY 12/02/16 Memantine HCl [Namenda -] 10 mg PO BID #0 tab 12/02/16 Metformin HCl 500 mg PO BID 12/02/16 Vitamin E 400 unit PO DAILY 12/02/16 Review of Systems - Review of Systems Able to Perform ROS?: Yes Comments:: 04/24/17 17:30 GENERAL/CONSTITUTIONAL: No fever or chills. No weakness. HEAD, EYES, EARS, NOSE AND THROAT: No change in vision. No ear pain or discharge. No sore throat. CARDIOVASCULAR: No chest pain or shortness of breath. RESPIRATORY: No cough, wheezing, or hemoptysis. GASTROINTESTINAL: +Constipation No nausea, vomiting, diarrhea GENITOURINARY: No dysuria, frequency, or change in urination. MUSCULOSKELETAL: No joint or muscle swelling or pain. No neck or back pain. SKIN: No rash NEUROLOGIC: No headache, vertigo, loss of consciousness, or change in strength/ sensation. ENDOCRINE: No increased thirst. No abnormal weight change. HEMATOLOGIC/LYMPHATIC: No anemia, easy bleeding, or history of blood clots. ALLERGIC/IMMUNOLOGIC: No hives or skin allergy. All Other Systems: Reviewed and Negative <Tony Benavides - Last Filed: 04/24/17 17:29> *Physical Exam - Vital Signs Last Vital Signs Temp Pulse Resp BP Pulse Ox 99.5 F 102 H 18 127/70 100 04/24/17 16:11 04/24/17 16:11 04/24/17 16:11 04/24/17 16:11 04/24/17 16:11 - Physical Exam Comments: 04/24/17 17:30 GENERAL: Afraid and anxious by examiner. Cannot follow commands. Needs encouragement from family. Awake, alert, and fully oriented, in no acute distress HEAD: No signs of trauma EYES: PERRLA, EOMI, sclera anicteric, conjunctiva clear ENT: Auricles normal inspection, hearing grossly normal, nares patent, oropharynx clear without exudates. Moist mucosa NECK: Normal ROM, supple, no lymphadenopathy, JVD, or masses LUNGS: Breath sounds equal, clear to auscultation bilaterally. No wheezes, and no crackles HEART: Regular rate and rhythm, normal S1 and S2, no murmurs, rubs or gallops ABDOMEN: Soft, nontender, normoactive bowel sounds. No guarding, no rebound. No masses GASTROINTESTINAL: +Able to perform rectal exam. +Large amount of stool in rectum No hemorrhoids internal or external. EXTREMITIES: Normal range of motion, no edema. No clubbing or cyanosis. No cords, erythema, or tenderness NEUROLOGICAL: Cranial nerves II through XII grossly intact. Normal speech, normal gait SKIN: Warm, Dry, normal turgor, no rashes or lesions noted. <Tony Benavides - Last Filed: 04/24/17 17:29> - Vital Signs Last Vital Signs Temp Pulse Resp BP Pulse Ox 99.5 F 102 H 18 127/70 100 04/24/17 16:11 04/24/17 16:11 04/24/17 16:11 04/24/17 16:11 04/24/17 16:11 <Yusef Pizano - Last Filed: 04/25/17 11:07> ED Treatment Course - LABORATORY CBC & Chemistry Diagram: 04/24/17 17:20 04/24/17 17:20 <Yusef Pizano - Last Filed: 04/25/17 11:07> *DC/Admit/Observation/Transfer - Attestations Scribe Attestion: 04/24/17 17:30 Documentation prepared by Tony Benavides, acting as biomedical engineering aide for Yusef Pizano MD/. <Tony Benavides - Last Filed: 04/24/17 17:29> - Attestations Physician Attestion: 04/24/17 16:48 I, Dr. Yusef Pizano, attest that this document has been prepared under my direction and personally reviewed by me in its entirety. I further attest, that it accurately reflects all work, treatment, procedures and medical decision -making performed by me. <Yusef Pizano - Last Filed: 04/25/17 11:07> Diagnosis at time of Disposition: Constipation Qualifiers: Constipation type: unspecified constipation type Qualified Code(s): K59.00 - Constipation, unspecified - Discharge Dispostion Disposition: HOME Condition at time of disposition: Good - Referrals Referrals: Maria M Chen MD [Primary Care Provider] - - Patient Instructions Printed Discharge Instructions: Constipation Additional Instructions: return immediately to the ED for severe pain, fever, pain or burning with urination, nausea and vomiting, new or worsening symptoms.
[2017-04-24] MEDS ORDERED: MINERAL OIL ENEMA 133 ML ENEMA PR ONE (17:16)
[2017-04-24 17:34] LABS: BASOPHIL 0.6 % (0-2.0); MCH 28.2 pg (25.7-33.7); MCHC 33.4 g/dl (32.0-36.0); MEAN CELL VOLUME 84.3 fl (80-96); MEAN PLT VOLUME 8.8 fl (7.5-11.1); NEUTROPHILS 62.8 % (42.8-82.8); PLATELET COUNT 378 K/MM3 (134-434); RDW 13.8 % (11.6-15.6)
[2017-04-24 17:58] LABS: INR 1.05 (0.82-1.09); PROTHROMBIN TIME (PATIENT) 11.6 SEC (9.98-11.88)
[2017-04-24 18:05] LABS: ALBUMIN 4.3 g/dl (3.4-5.0); ANION GAP 5 (8-16); CO2 31 mmol/L (21-32); CREATININE 0.8 mg/dL (0.55-1.02); GLUCOSE,RANDOM 107 mg/dL (74-106); SGOT/AST 19 U/L (15-37); SGPT/ALT 25 U/L (12-78)
[2017-04-24 18:06] LABS: ALK PHOS 56 U/L (45-117); BILIRUBIN,TOTAL 0.2 mg/dL (0.2-1.0); TOT PROT 8.1 g/dl (6.4-8.2)
--- NOTE | 2017-04-24 20:21 | PDOC ---
*Physical Exam - Vital Signs Last Vital Signs Temp Pulse Resp BP Pulse Ox 99.5 F 102 H 18 127/70 100 04/24/17 16:11 04/24/17 16:11 04/24/17 16:11 04/24/17 16:11 04/24/17 16:11 ED Treatment Course - LABORATORY CBC & Chemistry Diagram: 04/24/17 17:20 04/24/17 17:20 - ADDITIONAL ORDERS Additional order review: Laboratory Results 04/24/17 04/24/17 17:20 17:20 PT with INR 11.60 INR 1.05 Sodium 137 Potassium 4.4 Chloride 101 Carbon Dioxide 31 Anion Gap 5 L BUN 20 H D Creatinine 0.8 Creat Clearance w eGFR > 60 Random Glucose 107 H Calcium 10.0 Total Bilirubin 0.2 AST 19 D ALT 25 Alkaline Phosphatase 56 Total Protein 8.1 D Albumin 4.3 Lipase 240 04/24/17 17:20 RBC 3.64 MCV 84.3 MCHC 33.4 RDW 13.8 MPV 8.8 Neutrophils % 62.8 D Lymphocytes % 26.5 D Monocytes % 9.1 Eosinophils % 1.0 D Basophils % 0.6 - Medications Given in the ED: ED Medications Discontinued Medications Generic Name Dose Route Start Last Admin Trade Name Freq PRN Reason Stop Dose Admin Mineral Oil 133 ml 04/24/17 17:16 04/24/17 17:37 Fleet Mineral Oil Rectal Enema - MA 04/24/17 17:17 133 ml NOW ONE Administration Medical Decision Making - Medical Decision Making 04/24/17 20:17 Pt signed out to me by Dr. Pizano as pending lab results and results of CT head for constipation and an episode of abdominal pain that resolved. Patient recieved a fleets enema and has had three large BMs and now feels improved. Patient has not produced urine and family is refusing straight cath. Family is requesting to take the patient home. Will discharge the patient with instructions to return for new or worsening symptoms. *DC/Admit/Observation/Transfer Diagnosis at time of Disposition: Constipation Qualifiers: Constipation type: unspecified constipation type Qualified Code(s): K59.00 - Constipation, unspecified - Discharge Dispostion Disposition: HOME Condition at time of disposition: Good Admit: No - Referrals Referrals: Maria M Chen MD [Primary Care Provider] - - Patient Instructions Printed Discharge Instructions: Constipation Additional Instructions: return immediately to the ED for severe pain, fever, pain or burning with urination, nausea and vomiting, new or worsening symptoms. - Post Discharge Activity
[2017-04-24 20:24] VITALS: BP 122/76; PULSE 111; TEMP 97.7
== END 2017-04-24 20:26 | disposition home or self-care (01) ==
LOC: JER 16:08
DX: K59.00 Constipation, unspecified (principal); I10 Essential (primary) hypertension; E11.9 Type 2 diabetes mellitus without complications; Z79.84 Long term (current) use of oral hypoglycemic drugs; F03.91 Unspecified dementia, unspecified severity, with behavioral disturbance
CPT/HCPCS: 36415; 70450-TC; 74020-TC; 80053; 83690; 85025; 85610; 99283-25

== ENCOUNTER 2017-05-28 11:30 | Emergency (ER) | payer BC, OTHER ==
[2017-05-28 11:37] VITALS: BMI 16.1
[2017-05-28] MEDS ORDERED: KETOROLAC TROMETHAMINE 30 MG/1 ML VIAL IM ONE (12:05)
--- NOTE | 2017-05-28 12:14 | PDOC ---
History of Present Illness - General Chief Complaint: Pain Stated Complaint: HEADACHES Time Seen by Provider: 05/28/17 11:56 History Source: Patient, Family - History of Present Illness Timing/Duration: other (yesterday) Associated Symptoms: reports: headaches. denies: fever/chills, nausea/vomiting Past History - Past Medical History Allergies/Adverse Reactions: Allergies Allergy/AdvReac Type Severity Reaction Status Date / Time No Known Allergies Allergy Verified 05/28/17 11:36 Home Medications: Ambulatory Orders Lisinopril [Zestril] 20 mg PO DAILY 12/02/16 Memantine HCl [Namenda -] 10 mg PO BID #0 tab 12/02/16 Metformin HCl 500 mg PO BID 12/02/16 Vitamin E 400 unit PO DAILY 12/02/16 Acetaminophen [Tylenol] 650 mg PO Q6H #30 tablet 05/28/17 Olanzapine 5 mg PO DAILY 05/28/17 Quetiapine Fumarate [Seroquel -] 300 mg PO HS 05/28/17 Dementia: Yes Diabetes: Yes HTN: Yes - Suicide/Smoking/Psychosocial Hx Smoking History: Never smoked Have you smoked in the past 12 months: No Hx Alcohol Use: No Drug/Substance Use Hx: No Substance Use Type: None Review of Systems - Review of Systems Constitutional: No: Weight Stable HEENTM: No: Blurred Vision ABD/GI: No: Nausea, Vomiting Neurological: Yes: Headache. No: Numbness, Tingling, Weakness, Dizziness *Physical Exam - Vital Signs Last Vital Signs Temp Pulse Resp BP Pulse Ox 98.5 F 102 H 106 H 119/86 100 05/28/17 11:33 05/28/17 11:33 05/28/17 11:33 05/28/17 11:33 05/28/17 11:33 - Physical Exam General Appearance: Yes: Appropriately Dressed. No: Apparent Distress HEENT: positive: Normal Voice Neck: positive: Supple. negative: Tender, Decreased range of motion Respiratory/Chest: positive: Lungs Clear, Normal Breath Sounds. negative: Respiratory Distress Cardiovascular: positive: Regular Rate, S1, S2 Gastrointestinal/Abdominal: positive: Soft. negative: Tender Extremity: positive: Normal Inspection Integumentary: positive: Dry, Warm Neurologic: positive: Alert, Normal Mood/Affect, Motor Strength 5/5, Other (no ataxia, neuro exam limited as pt unable to follow some commands on exam). negative: Facial Droop ED Treatment Course - LABORATORY CBC & Chemistry Diagram: 05/28/17 12:30 05/28/17 12:30 - RADIOLOGY Radiology Studies Ordered: Category Date Time Status HEAD CT WITHOUT CONTRAST [CT] Stat CT Scan 05/28/17 12:05 Ordered Medical Decision Making - Medical Decision Making 05/28/17 12:07 71-year-old female, history of Alzheimer's, dementia, rol-jxzzzqz-dyixsxeyc diabetes, hypertension, brought in by sister for neck pain. As per sister, patient started complaining of pain to the back of her neck since yesterday that appeared to worsened this a.m. States that some point patient also complaining of possible headache. Pt given motrin w/ no relief. Patient unable to give much history and initially denied any symptoms to me but at some point said she might have some posterior neck pain. Denies headache at this time and no dizziness, vertigo, nausea, vomiting, visual changes, or focal weakness. No f /c See exam Neck pain w/ ?DANIELLE Hx limited by dementia Mildly tachy at triage, otherwise stable and well reta w/ unremarkable exam Neck pain possibly MSK, no suspicion of any red flags at this time, i.e dissection, temporal arthritis or infxn -pain control -labs -CT head 05/28/17 14:01 05/28/17 14:57 Labs and CTH negative. Pt better w/ meds and stable for dc with PMD f/u 05/28/17 15:07 *DC/Admit/Observation/Transfer Diagnosis at time of Disposition: Neck pain - Discharge Dispostion Disposition: HOME Condition at time of disposition: Improved - Prescriptions Prescriptions: Acetaminophen [Tylenol] 650 mg PO Q6H #30 tablet - Referrals Referrals: William Johnson MD [Primary Care Provider] - - Patient Instructions Additional Instructions: Your labs and head CT were normal. The cause of your neck pain could be muscular. Please take tylenol as needed for pain and follow up with your PMD
[2017-05-28] MEDS ORDERED: KETOROLAC TROMETHAMINE 30 MG/1 ML VIAL ONE (12:26)
[2017-05-28 12:41] LABS: BASOPHIL 0.5 % (0-2.0); EOSINOPHIL 1.4 % (0-4.5); MCH 27.2 pg (25.7-33.7); MCHC 32.3 g/dl (32.0-36.0); MEAN CELL VOLUME 84.1 fl (80-96); MEAN PLT VOLUME 8.9 fl (7.5-11.1); NEUTROPHILS 61.8 % (42.8-82.8); PLATELET COUNT 267 K/MM3 (134-434); RDW 12.9 % (11.6-15.6)
[2017-05-28 13:04] LABS: ALBUMIN 3.5 g/dl (3.4-5.0); ANION GAP 7 (8-16); CALCIUM 9.3 mg/dL (8.5-10.1); CO2 30 mmol/L (21-32); CREATININE 0.9 mg/dL (0.55-1.02); GLUCOSE,RANDOM 148 mg/dL (74-106); SGPT/ALT 21 U/L (12-78)
[2017-05-28 13:06] LABS: ALK PHOS 64 U/L (45-117); BILIRUBIN,TOTAL 0.2 mg/dL (0.2-1.0); TOT PROT 6.9 g/dl (6.4-8.2)
[2017-05-28 13:15] LABS: SGOT/AST 14 U/L (15-37)
[2017-05-28 15:35] VITALS: BP 126/72; PULSE 74; TEMP 98.4
== END 2017-05-28 15:35 | disposition home or self-care (01) ==
LOC: JER 11:30
PROC: 3E0233Z Introduction of Anti-inflammatory into Muscle, Percutaneous Approach (ICD-10-PCS; principal; 2017-05-28)
DX: M54.2 Cervicalgia (principal); I10 Essential (primary) hypertension; E11.9 Type 2 diabetes mellitus without complications; Z79.84 Long term (current) use of oral hypoglycemic drugs; G30.9 Alzheimer's disease, unspecified; F02.80 Dementia in other diseases classified elsewhere, unspecified severity, without behavioral disturbance, psychotic disturbance, mood disturbance, and anxiety
CPT/HCPCS: 36415; 70450-TC; 80053; 85025; 85651; 96372; 99282-25

== ENCOUNTER 2018-06-17 12:55 | Emergency (ER) | payer BC, OTHER ==
[2018-06-17 13:05] VITALS: BMI 17.6
--- NOTE | 2018-06-17 13:44 | PDOC ---
History of Present Illness - General Chief Complaint: Constipation Stated Complaint: ABDOMINAL PAIN Time Seen by Provider: 06/17/18 13:08 History Source: Patient Exam Limitations: No Limitations - History of Present Illness Initial Comments: CHIEF COMPLAINT: 72 y/o afebrile female with PMH HTN, DM, advanced dementia BIB her sister for constipation. HISTORY OF PRESENT ILLNESS: As per patient's sister, she has not had a bowel movement in 5 days. She states she is not passing gas either. Sister states the patient is eating well and denies fever, vomiting. The patient is a very poor historian. She has been seen in the past for same complaint and has needed a fleet enema. Vital signs on arrival are within normal limits. REVIEW OF SYSTEMS: Provided by patient's sister at bedside. GENERAL/CONSTITUTIONAL: No fever CARDIOVASCULAR: No chest pain or shortness of breath. RESPIRATORY: No cough, wheezing, or hemoptysis. GASTROINTESTINAL: +constipation and abdominal pain. No vomiting, diarrhea. GENITOURINARY: No dysuria. SKIN: No rash or easy bruising. NEUROLOGIC: No LOC PHYSICAL EXAM: GENERAL: The patient is awake and in NAD. HEAD: Normal with no signs of trauma. ENT: Pupils equal, round and reactive to light, extraocular movements intact, sclera anicteric, conjunctiva clear. Mucous membranes moist. LUNGS: Clear to auscultation bilaterally. Normal excursion. No respiratory distress or use of accessory muscles. CV: RRR, S1/S2, no MRG. Cap refill < 2 sec. ABDOMEN: Soft, non-distended, TTP of suprapubic region with passive guarding. Hypoactive BS x 4. EXTREMITIES: Normal range of motion, no edema. SKIN: Warm, dry, normal turgor, no rashes or lesions noted. Past History - Past Medical History Allergies/Adverse Reactions: Allergies Allergy/AdvReac Type Severity Reaction Status Date / Time No Known Allergies Allergy Verified 05/28/17 11:36 Home Medications: Ambulatory Orders Memantine HCl [Namenda -] 10 mg PO BID #0 tab 12/02/16 Vitamin E 400 unit PO DAILY 12/02/16 metFORMIN HCL [Metformin HCl] 500 mg PO BID 12/02/16 Acetaminophen [Tylenol] 650 mg PO Q6H #30 tablet 05/28/17 Quetiapine Fumarate [Seroquel -] 50 mg PO HS 05/28/17 Alprazolam [Xanax] 0.25 mg PO Q8H PRN 06/17/18 Losartan Potassium [Cozaar -] 25 mg PO DAILY 06/17/18 Mirtazapine [Remeron -] 15 mg PO HS 06/17/18 Sitagliptin Phosphate [Januvia -] 25 mg PO DAILY@0700 06/17/18 Dementia: Yes Diabetes: Yes HTN: Yes - Suicide/Smoking/Psychosocial Hx Smoking History: Unknown if ever smoked Have you smoked in the past 12 months: No Hx Alcohol Use: No Drug/Substance Use Hx: No Substance Use Type: None *Physical Exam - Vital Signs Last Vital Signs Temp Pulse Resp BP Pulse Ox 98.7 F 89 20 137/56 L 97 06/17/18 13:01 06/17/18 13:01 06/17/18 13:01 06/17/18 13:01 06/17/18 13:01 Medical Decision Making - Medical Decision Making A/P: 72 y/o afebrile female here for constipation, with no BM x 5 days. Plan is as follows: 1. Labs 2. UA/culture 3. Abd flat/upright xray *DC/Admit/Observation/Transfer Diagnosis at time of Disposition: Constipation - Referrals Referrals: Aguila Johnson MD [Primary Care Provider] - - Patient Instructions - Post Discharge Activity
[2018-06-17 14:23] LABS: BASO % 0.2 % (0-2.0); EOS % 0.5 % (0-4.5); HEMATOCRIT 29.7 % (32.4-45.2); HEMOGLOBIN 9.8 GM/dL (10.7-15.3); LYMPH % 19.7 % (8-40); MCH 27.2 pg (25.7-33.7); MEAN CELL VOLUME 82.4 fl (80-96); MEAN PLT VOLUME 9.1 fl (7.5-11.1); MONO % 6.5 % (3.8-10.2); NEUT % 73.1 % (42.8-82.8); PLATELET COUNT 379 K/MM3 (134-434); RBC 3.61 M/mm3 (3.60-5.2); RDW 13.5 % (11.6-15.6); WHITE BLOOD COUNT 7.4 K/mm3 (4.0-10.0)
[2018-06-17 15:08] LABS: ALBUMIN 3.7 g/dl (3.4-5.0); ALK PHOS 72 U/L (45-117); ANION GAP 8 MMOL/L (8-16); BILIRUBIN,TOTAL 0.2 mg/dL (0.2-1); BLOOD UREA NITROGEN 17 mg/dL (7-18); CALCIUM 9.3 mg/dL (8.5-10.1); CHLORIDE 104 mmol/L (98-107); CO2 28 mmol/L (21-32); GLUCOSE,RANDOM 234 mg/dL (74-106); POTASSIUM 4.3 mmol/L (3.5-5.1); SGOT/AST 10 U/L (15-37); SGPT/ALT 19 U/L (13-61); SODIUM 140 mmol/L (136-145)
[2018-06-17 15:27] LABS: URINE APPEARANCE CLEAR; URINE BILIRUBIN NEGATIVE (<2.0 mg/dL); URINE COLOR STRAW; URINE GLUCOSE (UA) 3+ (NEGATIVE); URINE KETONE NEGATIVE (NEGATIVE); URINE LEUK ESTERASE NEGATIVE (NEGATIVE); URINE NITRITE NEGATIVE (NEGATIVE); URINE PROTEIN NEGATIVE (NEGATIVE); URINE UROBILINOGEN NEGATIVE mg/dL (0.2-1.0)
[2018-06-17 15:37] LABS: EPI CELLS RARE /HPF (FEW); URINE HYALINE CAST 4 /lpf; URINE MUCUS RARE
[2018-06-17 18:17] VITALS: TEMP 97.7
[2018-06-17] MEDS ORDERED: LORazepam 2 MG/ML SDV VIAL ONE ×2 (18:37→20:02)
--- NOTE | 2018-06-17 19:17 | PDOC ---
*Physical Exam - Vital Signs Last Vital Signs Temp Pulse Resp BP Pulse Ox 97.7 F 85 20 139/53 L 100 06/17/18 17:20 06/17/18 17:20 06/17/18 17:20 06/17/18 17:20 06/17/18 17:20 - Physical Exam Gastrointestinal/Abdominal: positive: Soft, Decreased BS, Guarding (LLQ). negative: Tender ED Treatment Course - LABORATORY CBC & Chemistry Diagram: 06/17/18 14:20 06/17/18 14:20 - ADDITIONAL ORDERS Additional order review: Laboratory Results 06/17/18 06/17/18 06/17/18 15:16 14:20 14:20 Sodium 140 Potassium 4.3 Chloride 104 Carbon Dioxide 28 Anion Gap 8 BUN 17 Creatinine 1.0 Creat Clearance w eGFR 54.81 Random Glucose 234 H Lactic Acid 2.0 Calcium 9.3 Total Bilirubin 0.2 AST 10 L ALT 19 Alkaline Phosphatase 72 Total Protein 7.0 Albumin 3.7 Urine Color Straw Urine Appearance Clear Urine pH 6.0 Ur Specific [place] 1.007 L Urine Protein Negative Urine Glucose (UA) 3+ H Urine Ketones Negative Urine Blood 1+ H Urine Nitrite Negative Urine Bilirubin Negative Urine Urobilinogen Negative Ur Leukocyte Esterase Negative Urine WBC (Auto) 1 Urine RBC (Auto) 1 Ur Epithelial Cells Rare Hyaline Casts 4 Urine Mucus Rare 06/17/18 14:20 RBC 3.61 MCV 82.4 MCHC 33.0 RDW 13.5 MPV 9.1 Neutrophils % 73.1 Lymphocytes % 19.7 D Monocytes % 6.5 Eosinophils % 0.5 Basophils % 0.2 - Medications Given in the ED: ED Medications Discontinued Medications Generic Name Dose Route Start Last Admin Trade Name Freq PRN Reason Stop Dose Admin Lorazepam 0.5 mg 06/17/18 18:31 06/17/18 18:45 Ativan Injection - IVPUSH 06/17/18 18:32 0.5 mg ONCE ONE Administration Progress Note - Progress Note Progress Note: Received signout from ELANA Rhodes. Briefly this is a 72-year-old woman history of hypertension, diabetes, advanced dementia who is brought in for evaluation no bowel movement or passing gas in the past 5 days. Patient had similar episode approximately one year ago and a negative workup and was relieved with one fleets enema. Laboratory testing is unremarkable. Patient is pending CT abdomen and pelvis at this time. Disposition is pending Medical Decision Making - Medical Decision Making 06/17/18 21:26 A/P: 72-year-old woman with constipation Hypoactive bowel sounds in all quadrants Abdomen soft nontender nondistended Patient had large bowel movement on return from CT scan. Awaiting read of CT scan for disposition 06/17/18 22:06 CT of abdomen and pelvis as read by imaging customer retention specialist: There is mild atelectasis in the right lower lobe. There is elevation of the right hemidiaphragm. Small hiatal hernia is noted. There is no free air. There are multiple noncalcified gallstones. There are no secondary signs of call as renal calculi. No AAA. There is residual enteric contrast noted within the colon. There is no obvious small bowel structure. There is marked fecal impaction noted in the rectum. The appendix not identified with certainty. There is marked distention of the urinary bladder at this time. There are no bladder calculi. This patient had a large bowel movement after CAT scan I will discharge the patient home as fecal burden has been removed at this time. *DC/Admit/Observation/Transfer Diagnosis at time of Disposition: Constipation Qualifiers: Constipation type: unspecified constipation type Qualified Code(s): K59.00 - Constipation, unspecified - Discharge Dispostion Disposition: HOME Condition at time of disposition: Stable Decision to Admit order: No - Referrals Referrals: Aguila Johnson MD [Primary Care Provider] - - Patient Instructions Additional Instructions: Drink plenty of water. You may add warm prune juice to your daily dietary regimen. Return to emergency department for any concerns. - Post Discharge Activity
[2018-06-17 23:16] VITALS: BP 119/52; PULSE 80
== END 2018-06-17 23:03 | disposition home or self-care (01) ==
LOC: JER 12:55
PROC: 3E033NZ Introduction of Analgesics, Hypnotics, Sedatives into Peripheral Vein, Percutaneous Approach (ICD-10-PCS; principal; 2018-06-17)
DX: K59.00 Constipation, unspecified (principal); I10 Essential (primary) hypertension; E11.9 Type 2 diabetes mellitus without complications; Z79.84 Long term (current) use of oral hypoglycemic drugs; F03.90 Unspecified dementia, unspecified severity, without behavioral disturbance, psychotic disturbance, mood disturbance, and anxiety
CPT/HCPCS: 36415; 74176-TC; 80053; 81003; 81015; 83605; 85025; 87086; 96374; 96376; 99285-25

== ENCOUNTER 2018-06-28 15:58 | Emergency (ER) | payer OTHER ==
[2018-06-28 16:18] VITALS: BMI 19.5
[2018-06-28 16:34] VITALS: BP 116/41; PULSE 112; TEMP 97.8
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
--- NOTE | 2018-06-28 17:36 | PDOC ---
Attending Attestation - Resident Resident Name: Janine Espitia - ED Attending Attestation I have performed the following: I have examined & evaluated the patient, The case was reviewed & discussed with the resident, I agree w/resident's findings & plan, Exceptions are as noted - HPI HPI: 72 yo F sent by family for agitation, aggressive behavior. Patient unable to give any history- history of dementia, speech is nonsensical. Offers no complaints at present. - Physicial Exam PE: GENERAL: Awake, alert, in no acute distress HEAD: No signs of trauma EYES: PERRLA, EOMI, sclera anicteric, conjunctiva clear ENT: Auricles normal inspection, hearing grossly normal, nares patent, oropharynx clear without exudates. Moist mucosa NECK: Normal ROM, supple, no lymphadenopathy, JVD, or masses LUNGS: Breath sounds equal, clear to auscultation bilaterally. No wheezes, and no crackles HEART: Tachycardic, normal S1 and S2, no murmurs, rubs or gallops ABDOMEN: Soft, nontender, normoactive bowel sounds. No guarding, no rebound. No masses EXTREMITIES: Normal range of motion, no edema. No clubbing or cyanosis. No cords, erythema, or tenderness NEUROLOGICAL: Cranial nerves II through XII grossly intact. Motor and sensation intact. Speech is nonsensical. SKIN: Warm, Dry, normal turgor, no rashes or lesions noted. - Medical Decision Making Patient with AMS as per nursing report. Will obtain labs, UA, CXR, CTH.
[2018-06-28] MEDS ORDERED: HALOPERIDOL LACTATE 5 MG/ML IM ONE (18:48)
[2018-06-28 18:57] LABS: BASO % 0.3 % (0-2.0); EOS % 1.1 % (0-4.5); HEMOGLOBIN 9.8 GM/dL (10.7-15.3); LYMPH % 26.9 % (8-40); MCH 27.3 pg (25.7-33.7); MCHC 33.7 g/dl (32.0-36.0); MEAN PLT VOLUME 9.1 fl (7.5-11.1); MONO % 9.1 % (3.8-10.2); NEUT % 62.6 % (42.8-82.8); PLATELET COUNT 386 K/MM3 (134-434); RBC 3.58 M/mm3 (3.60-5.2); RDW 13.4 % (11.6-15.6); WHITE BLOOD COUNT 11.4 K/mm3 (4.0-10.0)
[2018-06-28 19:06] LABS: URINE APPEARANCE CLOUDY; URINE BILIRUBIN NEGATIVE (<2.0 mg/dL); URINE COLOR YELLOW; URINE GLUCOSE (UA) 3+ (NEGATIVE); URINE KETONE NEGATIVE (NEGATIVE); URINE LEUK ESTERASE 3+ (NEGATIVE); URINE NITRITE NEGATIVE (NEGATIVE); URINE PROTEIN NEGATIVE (NEGATIVE); URINE UROBILINOGEN NEGATIVE mg/dL (0.2-1.0)
[2018-06-28 19:12] LABS: ALBUMIN 3.6 g/dl (3.4-5.0); ALK PHOS 92 U/L (45-117); ANION GAP 11 MMOL/L (8-16); BILIRUBIN,TOTAL 0.2 mg/dL (0.2-1); BLOOD UREA NITROGEN 21 mg/dL (7-18); CALCIUM 9.2 mg/dL (8.5-10.1); CHLORIDE 101 mmol/L (98-107); CO2 25 mmol/L (21-32); EPI CELLS RARE /HPF (FEW); GLUCOSE,RANDOM 158 mg/dL (74-106); INR 1.03 (0.83-1.09); POTASSIUM 4.6 mmol/L (3.5-5.1); PROTHROMBIN TIME (PATIENT) 12.1 SEC (9.7-13.0); SGOT/AST 9 U/L (15-37); SGPT/ALT 18 U/L (13-61); SODIUM 137 mmol/L (136-145); TOT PROT 7.3 g/dl (6.4-8.2); URINE BACTERIA RARE /hpf (NONE SEEN); URINE MUCUS RARE
[2018-06-28] MEDS ORDERED: HALOPERIDOL LACTATE 5 MG/ML ONE (19:40)
--- NOTE | 2018-06-28 19:59 | PDOC ---
*Physical Exam - Vital Signs Last Vital Signs Temp Pulse Resp BP Pulse Ox 97.8 F 112 H 16 116/41 L 92 L 06/28/18 15:58 06/28/18 15:58 06/28/18 15:58 06/28/18 15:58 06/28/18 15:58 ED Treatment Course - LABORATORY CBC & Chemistry Diagram: 06/28/18 18:36 06/28/18 18:36 - ADDITIONAL ORDERS Additional order review: Laboratory Results 06/28/18 06/28/18 06/28/18 18:36 18:36 18:36 PT with INR 12.10 INR 1.03 Sodium 137 Potassium 4.6 Chloride 101 Carbon Dioxide 25 Anion Gap 11 BUN 21 H Creatinine 1.0 Creat Clearance w eGFR 54.81 Random Glucose 158 H Calcium 9.2 Total Bilirubin 0.2 AST 9 L ALT 18 Alkaline Phosphatase 92 Creatine Kinase 70 Troponin I < 0.02 Total Protein 7.3 Albumin 3.6 Urine Color Yellow Urine Appearance Cloudy Urine pH 5.0 Ur Specific [place] 1.012 Urine Protein Negative Urine Glucose (UA) 3+ H Urine Ketones Negative Urine Blood 1+ H Urine Nitrite Negative Urine Bilirubin Negative Urine Urobilinogen Negative Ur Leukocyte Esterase 3+ H Urine WBC (Auto) 169 Urine RBC (Auto) 3 Ur Epithelial Cells Rare Urine Bacteria Rare Urine Mucus Rare 06/28/18 18:36 RBC 3.58 L MCV 81.0 MCHC 33.7 RDW 13.4 MPV 9.1 Neutrophils % 62.6 Lymphocytes % 26.9 D Monocytes % 9.1 Eosinophils % 1.1 D Basophils % 0.3 Medical Decision Making - Medical Decision Making 72 year old female with severe behavioral issues but consistent with her baseline sent to our ED by her home health aid because of behavioral issues. However, her family states that her behavior is consistent with her baseline and they are OK with taking her home. Head CT negative and labs roughly WNL. Patient does have a UTI for which she was given one DS Bactrim and will be given a 3 day BID DS course. 06/28/18 22:45 *DC/Admit/Observation/Transfer Diagnosis at time of Disposition: Behavioral problem UTI (urinary tract infection) Qualifiers: Urinary tract infection type: site unspecified Hematuria presence: without hematuria Qualified Code(s): N39.0 - Urinary tract infection, site not specified - Discharge Dispostion Disposition: HOME Condition at time of disposition: Stable Decision to Admit order: No - Prescriptions Prescriptions: Sulfamethoxazole/Trimethoprim [Bactrim Ds -] 1 tab PO BID #6 tablet - Referrals - Patient Instructions Printed Discharge Instructions: DI for Schizophrenia, DI for Urinary Tract Infection (UTI) Additional Instructions: You have an infection in your urine and you should take the antibiotics twice a day for three days. Please follow up with your PCP tomorrow. Please return to the ED if you have worsening urinary symptoms or any new symptoms. - Post Discharge Activity
[2018-06-28] MEDS ORDERED: SULFAMETHOXAZOLE/TRIMETHOPRIM 800MG/160MG D.S. TABLET PO ONE (21:23)
[2018-06-28] MEDS ORDERED: SULFAMETHOXAZOLE/TRIMETHOPRIM 800MG/160MG D.S. TABLET ONE (22:55)
--- NOTE | 2018-06-30 10:15 | EKG ---
Test Reason : Blood Pressure : / mmHG Vent. Rate : 106 BPM Atrial Rate : 106 BPM P-R Int : 150 ms QRS Dur : 082 ms QT Int : 328 ms P-R-T Axes : 058 068 060 degrees QTc Int : 435 ms SINUS TACHYCARDIA OTHERWISE NORMAL ECG WHEN COMPARED WITH ECG OF 01-DEC-2016 19:21, NO SIGNIFICANT CHANGE WAS FOUND Confirmed by TESHA LEI MD ([id number]) on 06/30/2018 10:15:19 AM Referred By: Confirmed By:TESHA LEI MD
== END 2018-06-29 02:02 | disposition home or self-care (01) ==
LOC: JER 15:58
PROC: 3E023NZ Introduction of Analgesics, Hypnotics, Sedatives into Muscle, Percutaneous Approach (ICD-10-PCS; principal; 2018-06-28)
DX: N39.0 Urinary tract infection, site not specified (principal); F03.91 Unspecified dementia, unspecified severity, with behavioral disturbance; F91.8 Other conduct disorders; F20.9 Schizophrenia, unspecified; I10 Essential (primary) hypertension; E11.9 Type 2 diabetes mellitus without complications; Z79.84 Long term (current) use of oral hypoglycemic drugs
CPT/HCPCS: 36415; 70450-TC; 71045-TC-FY; 80053; 81003; 81015; 82550; 84484; 85025; 85610; 87086; 87186; 93005; 93010; 99282-25

== ENCOUNTER 2018-07-13 17:37 | Inpatient (IN) | payer OTHER, BC ==
--- NOTE | 2018-07-13 19:44 | PDOC ---
History of Present Illness - General Chief Complaint: Nausea/Vomiting Stated Complaint: FALL Time Seen by Provider: 07/13/18 19:16 - History of Present Illness Initial Comments: 72 yo w a hx of advanced frontotemporal dementia, schizophrenia, agressive behavior, DM, and HTN who presents from home BIBEMS with non-stop nausea and vomiting for the past 3 days. She has also been constantly falling down and hitting her head. Her aid at bedside states she has not had any fevers. She has been urinating more frequently and the diapers have a foul odor. Patient is not able to converse appropriately and history is limited. Denies any SOB or difficulty breathing. Denies diarrhea or constipation. PCP: William Johnson Allergies: NKA, NKDA Social Hx: Denies smoking, drinking, illicit drug usage. Past History - Past Medical History Allergies/Adverse Reactions: Allergies Allergy/AdvReac Type Severity Reaction Status Date / Time No Known Allergies Allergy Verified 07/13/18 18:01 Home Medications: Ambulatory Orders Memantine HCl [Namenda -] 10 mg PO BID #0 tab 12/02/16 Vitamin E 400 unit PO DAILY 12/02/16 metFORMIN HCL [Metformin HCl] 500 mg PO BID 12/02/16 Acetaminophen [Tylenol] 650 mg PO Q6H #30 tablet 05/28/17 Quetiapine Fumarate [Seroquel -] 50 mg PO HS 05/28/17 Alprazolam [Xanax] 0.25 mg PO Q8H PRN 06/17/18 Losartan Potassium [Cozaar -] 25 mg PO DAILY 06/17/18 Mirtazapine [Remeron -] 15 mg PO HS 06/17/18 Sitagliptin Phosphate [Januvia -] 25 mg PO DAILY@0700 06/17/18 Sulfamethoxazole/Trimethoprim [Bactrim Ds -] 1 tab PO BID #6 tablet 06/28/18 COPD: No CHF: No Dementia: Yes Diabetes: Yes HTN: Yes Psychiatric Problems: Yes (schiophrenia) - Suicide/Smoking/Psychosocial Hx Smoking History: Unknown if ever smoked Have you smoked in the past 12 months: No Information on smoking cessation initiated: No Hx Alcohol Use: No Drug/Substance Use Hx: No Substance Use Type: None Review of Systems - Review of Systems Able to Perform ROS?: No *Physical Exam - Vital Signs Last Vital Signs Temp Pulse Resp BP Pulse Ox 97.7 F 70 18 119/60 100 07/13/18 18:01 07/13/18 18:01 07/13/18 18:01 07/13/18 18:01 07/13/18 18:01 - Physical Exam General Appearance: Yes: Disheveled, Mild Distress, Cachetic HEENT: positive: ALEN, Orbits (Bruises around her eyes). negative: Normal ENT Inspection Neck: positive: Trachea midline Respiratory/Chest: positive: Lungs Clear Cardiovascular: positive: Regular Rhythm, Regular Rate, S1, S2 Vascular Pulses: Dorsalis-Pedis (R): 2+, Doralis-Pedis (L): 2+ Gastrointestinal/Abdominal: positive: Normal Bowel Sounds, Soft Lymphatic: negative: Adenopathy Musculoskeletal: positive: Decreased Range of Motion Extremity: positive: Normal Capillary Refill, Normal Inspection Integumentary: positive: Dry, Pale Neurologic: positive: Confused, Disoriented. negative: Normal Mood/Affect Moderate Sedation - Procedure Monitoring Vital Signs: Procedure Monitoring Vital Signs Temperature 97.7 F 07/13/18 18:01 Pulse Rate 70 07/13/18 18:01 Respiratory Rate 18 07/13/18 18:01 Blood Pressure 119/60 07/13/18 18:01 O2 Sat by Pulse Oximetry (%) 100 07/13/18 18:01 ED Treatment Course - LABORATORY CBC & Chemistry Diagram: 07/13/18 20:24 07/13/18 20:24 Medical Decision Making - Medical Decision Making 72 yo w a hx of advanced frontotemporal dementia, schizophrenia, agressive behavior, DM, and HTN who presents from home BIBEMS with non-stop nausea and vomiting for the past 3 days. She has also been constantly falling down and hitting her head. Her aid at bedside states she has not had any fevers. She has been urinating more frequently and the diapers have a foul odor. DDx IBNLT: UTI, PNA, other infection, brain bleed, advancing dementia, Acs, TN, arrhythmia Plan: Cbc, Cmp, Trop, Ua/Uc, EKG, CXR, Head CT, re-assess, probable admit. Patient was extremely agitated on the Cat scan machine so we gave her 1 mg of ativan Labs, Urine, imaging relatively unimpressive and WNL. We will admit the patient for recurrent falls and delerium. *DC/Admit/Observation/Transfer Diagnosis at time of Disposition: Frequent falls, Acute delirium - Discharge Dispostion Condition at time of disposition: Guarded Decision to Admit order: Yes - Referrals Referrals: William Johnson MD [Primary Care Provider] - - Patient Instructions - Post Discharge Activity
--- NOTE | 2018-07-13 20:24 | PDOC ---
Attending Attestation - Resident Resident Name: Issa Pate - ED Attending Attestation I have performed the following: I have examined & evaluated the patient, The case was reviewed & discussed with the resident, I agree w/resident's findings & plan - HPI HPI: 07/13/18 20:21 72-year-old female history of advanced frontotemporal dementia, schizophrenia presents with home health aide and family with foul-smelling urine for several days and now repeated falls with nausea vomiting over the last 1-2 days. Has history of UTI, most recently diagnosed about 2 weeks ago and completed 1 week course of antibiotics about 10 days ago. Over the last 1-2 days had several falls, most recently this evening, earlier had 1-2 episodes of nausea/vomiting. Otherwise at baseline behavior except more generally weak than usual. No noted fevers or chills. - Physicial Exam PE: 07/13/18 20:22 Vitals are within normal limits, afebrile Alert, interacting with home health aide, nonverbal at baseline Bruises to the forehead, left periorbital region, and right upper lip No scalp hematoma or deformity Nose no midline C-spine tenderness Heart is regular, lungs are clear, abdomen benign with slight suprapubic discomfort to palpation No extremity deformity or bruising, full range of motion of all joints, neurologically nonfocal on limited examination - Medical Decision Making 07/13/18 20:23 72-year-old female with recent UTI presents now with foul-smelling urine and falls over the last 1-2 days. Likely recurrence of UTI, vitals are within normal limits without evidence of SIRS or sepsis at this time. Also with head injury multiple times, rule out TBI. Labs, urinalysis, urine culture Chest x-ray, CT head IV fluids, antibiotics: per prior urine culture, bacteria 3 and sensitive to Levaquin Admission given significant change in functionality and severe weakness in the setting of infection 07/13/18 22:54 empirically treated with abx given history, UA relatively clear labs wnl, baseline anemia, wbc 10.[address] head with atrophy but no acute pathology. proceed with admit for delerium/AMS and repeated falls, ? neuro etiology Heart Score/ECG Review #1 ECG reviewed & interpreted by me at: 21:13 General ECG Interpretation: Sinus Rhythm, Normal Rate (79), Normal Intervals ( qtc 465), No acute ischemic changes Compared to previous ECG there are: No significant change (06/28/18)
[2018-07-13] MEDS ORDERED: ONDANSETRON 4 MG/2 ML VIAL IVPUSH ONE (20:48)
[2018-07-13] MEDS ORDERED: ONDANSETRON 4 MG/2 ML VIAL ONE (20:49)
[2018-07-13 20:52] LABS: BASO % 0.4 % (0-2.0); EOS % 0.1 % (0-4.5); HEMATOCRIT 28.8 % (32.4-45.2); HEMOGLOBIN 9.7 GM/dL (10.7-15.3); LYMPH % 17.1 % (8-40); MCH 27.6 pg (25.7-33.7); MCHC 33.8 g/dl (32.0-36.0); MEAN CELL VOLUME 81.6 fl (80-96); MEAN PLT VOLUME 9.4 fl (7.5-11.1); MONO % 5.1 % (3.8-10.2); NEUT % 77.3 % (42.8-82.8); PLATELET COUNT 395 K/MM3 (134-434); RBC 3.53 M/mm3 (3.60-5.2); RDW 13.9 % (11.6-15.6); WHITE BLOOD COUNT 10.2 K/mm3 (4.0-10.0)
[2018-07-13 21:03] LABS: INR 1.07 (0.83-1.09); PROTHROMBIN TIME (PATIENT) 12.6 SEC (9.7-13.0)
[2018-07-13] MEDS ORDERED: HALOPERIDOL LACTATE 5 MG/ML IVPUSH ONE (21:16)
[2018-07-13] MEDS ORDERED: HALOPERIDOL LACTATE 5 MG/ML ONE (21:19)
[2018-07-13 21:21] LABS: ALBUMIN 3.8 g/dl (3.4-5.0); ALK PHOS 79 U/L (45-117); ANION GAP 10 MMOL/L (8-16); BILIRUBIN,TOTAL 0.2 mg/dL (0.2-1); BLOOD UREA NITROGEN 16 mg/dL (7-18); CALCIUM 9.4 mg/dL (8.5-10.1); CHLORIDE 98 mmol/L (98-107); CO2 30 mmol/L (21-32); CREATININE 0.8 mg/dL (0.55-1.3); GLUCOSE,RANDOM 269 mg/dL (74-106); POTASSIUM 3.9 mmol/L (3.5-5.1); SGOT/AST 14 U/L (15-37); SGPT/ALT 18 U/L (13-61); SODIUM 138 mmol/L (136-145); TOT PROT 7.1 g/dl (6.4-8.2)
[2018-07-13 21:40] LABS: URINE APPEARANCE CLEAR; URINE BILIRUBIN NEGATIVE (<2.0 mg/dL); URINE COLOR YELLOW; URINE GLUCOSE (UA) 3+ (NEGATIVE); URINE KETONE TRACE (NEGATIVE); URINE LEUK ESTERASE NEGATIVE (NEGATIVE); URINE NITRITE NEGATIVE (NEGATIVE); URINE PROTEIN 1+ (NEGATIVE)
[2018-07-13 21:42] LABS: EPI CELLS RARE /HPF (FEW); URINE HYALINE CAST 3 /lpf; URINE MUCUS FEW
[2018-07-13] MEDS ORDERED: LORazepam 2 MG/ML SDV VIAL ONE ×2 (21:53→21:58)
[2018-07-14] MEDS ORDERED: ACETAMINOPHEN 325 MG TABLET (FP) PO PRN (03:00)
[2018-07-14] MEDS ORDERED: HALOPERIDOL LACTATE 5 MG/ML IM ONE (05:26)
[2018-07-14] MEDS ORDERED: HALOPERIDOL LACTATE 5 MG/ML ONE (05:45)
[2018-07-14 07:20] LABS: BASO % 0.2 % (0-2.0); EOS % 0.3 % (0-4.5); HEMATOCRIT 30.5 % (32.4-45.2); HEMOGLOBIN 10.3 GM/dL (10.7-15.3); LYMPH % 20.9 % (8-40); MCH 27.8 pg (25.7-33.7); MCHC 33.9 g/dl (32.0-36.0); MEAN CELL VOLUME 82.2 fl (80-96); MEAN PLT VOLUME 9.1 fl (7.5-11.1); MONO % 8.5 % (3.8-10.2); NEUT % 70.1 % (42.8-82.8); PLATELET COUNT 403 K/MM3 (134-434); RBC 3.72 M/mm3 (3.60-5.2); WHITE BLOOD COUNT 7.3 K/mm3 (4.0-10.0)
[2018-07-14 08:37] LABS: ALBUMIN 3.5 g/dl (3.4-5.0); ALK PHOS 86 U/L (45-117); ANION GAP 8 MMOL/L (8-16); BILIRUBIN,TOTAL 0.3 mg/dL (0.2-1); BLOOD UREA NITROGEN 21 mg/dL (7-18); CHLORIDE 98 mmol/L (98-107); CO2 31 mmol/L (21-32); CREATININE 0.9 mg/dL (0.55-1.3); GLUCOSE,RANDOM 186 mg/dL (74-106); SGOT/AST 13 U/L (15-37); SGPT/ALT 20 U/L (13-61); SODIUM 136 mmol/L (136-145); TOT PROT 7.7 g/dl (6.4-8.2)
--- NOTE | 2018-07-14 10:19 | ECHO ---
Name: ELOISA ELAM Exam:Adult Echocardiogram Study Date: 07/14/2018 08:38 AM Age: 72 yrs Reason For Study: HTN Height: 63 in Weight: 110 lb BSA: 1.5 m2 MMode/2D Measurements & Calculations Ao root diam: 2.5 cm LVOT diam: 2.1 cm ACS: 1.8 cm Procedure There was technical limitations during this study due to uncooperative patient. Images were not obtai aisha from all of the standard acoustic windows due to the limited scope of the study. Left Ventricle Left ventricular systolic function is grossly normal. Regional wall motion abnormalities cannot be ex cluded due to limited visualization. Right Ventricle The right ventricle is grossly normal size. The right ventricular systolic function is grossly normal . Atria Normal left and right atrial size and function. Mitral Valve The mitral valve is normal in structure and function. There is no mitral valve stenosis. There is no mitral regurgitation noted. Tricuspid Valve The tricuspid valve is not well visualized. Aortic Valve The aortic valve is not well visualized. No hemodynamically significant valvular aortic stenosis. No aortic regurgitation is present. Pulmonic Valve The pulmonic valve is not well visualized. Great Vessels The aortic root is normal size. Pericardium/Pleura There is no pericardial effusion. Interpretation Summary There was technical limitations during this study due to uncooperative patient. Images were not obtained from all of the standard acoustic windows due to the limited scope of the st udy. Left ventricular systolic function is grossly normal. Regional wall motion abnormalities cannot be excluded due to limited visualization. The right ventricle is grossly normal size. The right ventricular systolic function is grossly normal. There is no mitral valve stenosis. There is no mitral regurgitation noted. No hemodynamically significant valvular aortic stenosis. The aortic root is normal size. There is no pericardial effusion. MD Mora *Jarrett 07/14/2018 10:19 AM
[2018-07-14] MEDS: metFORMIN HCL 500 MG TABLET (FP) PO SCH ×2 (11:00→18:31)
[2018-07-14] MEDS: MEMANTINE HCL 10 MG TABLET (FP) PO SCH ×2 (11:00→21:19)
--- NOTE | 2018-07-14 11:44 | EKG ---
Test Reason : Blood Pressure : / mmHG Vent. Rate : 079 BPM Atrial Rate : 079 BPM P-R Int : 148 ms QRS Dur : 076 ms QT Int : 406 ms P-R-T Axes : 030 071 052 degrees QTc Int : 465 ms POOR DATA QUALITY, INTERPRETATION MAY BE ADVERSELY AFFECTED NORMAL SINUS RHYTHM NORMAL ECG WHEN COMPARED WITH ECG OF 28-JUN-2018 16:19, NO SIGNIFICANT CHANGE WAS FOUND Confirmed by MUNIRA LOZA, CHIKIS ([id number]) on 07/14/2018 11:43:50 AM Referred By: Confirmed By:CHIKIS LOMBARDO MD
[2018-07-14] MEDS: LOSARTAN POTASSIUM 25 MG TABLET PO SCH (12:00)
[2018-07-14] MEDS: sitaGLIPtin PHOSPHATE 25 MG TABLET (FP) PO SCH (13:11)
[2018-07-14] MEDS: INSULIN SLIDING SCALE (NOVOLOG) 1 VIAL SQ SCH ×3 (13:45→21:29)
[2018-07-14] MEDS: HEPARIN NA (PORCINE) 5,000 UNITS/ML 1ML VIAL SQ SCH ×2 (13:45→21:19)
[2018-07-14] MEDS ORDERED: INSULIN (NOVOLOG) ASPART 100 UNITS/ML 10ML VIAL ONE (14:07)
--- NOTE | 2018-07-14 15:44 | HP ---
Admitting History and Physical - Admission History of Present Illness: Pt is a 72 yo w a hx of advanced dementia, schizophrenia(agressive behavior), DM , and HTN who presents from home BIBEMS with non-stop nausea and vomiting for the past 3 days. She has also been constantly falling down and hitting her head. Her aid at bedside states she has not had any fevers. She has been urinating more frequently and the diapers have a foul odor. - Past Medical History [employer]: Yes: Dementia Cardiovascular: Yes: HTN Endocrine: Yes: Diabetes Mellitus - Smoking History Smoking history: Unknown if ever smoked Have you smoked in the past 12 months: No - Alcohol/Substance Use Hx Alcohol Use: No Home Medications - Allergies Allergies/Adverse Reactions: Allergies Allergy/AdvReac Type Severity Reaction Status Date / Time No Known Allergies Allergy Verified 07/13/18 18:01 - Home Medications Home Medications: Ambulatory Orders metFORMIN HCL [Metformin HCl] 500 mg PO BID 12/02/16 Quetiapine Fumarate [Seroquel -] 50 mg PO HS 05/28/17 Losartan Potassium [Cozaar -] 25 mg PO DAILY 06/17/18 Cholecalciferol (Vitamin D3) [Vitamin D3] 2,000 unit PO DAILY 07/14/18 Ferrous Sulfate 325 mg PO DAILY 07/14/18 Acetaminophen [Tylenol .Regular Strength -] 650 mg PO Q6H PRN tablet 07/18/18 Alprazolam [Xanax] 0.25 mg PO Q8H PRN tablet MDD 3 07/18/18 Docusate Sodium [Colace -] 100 mg PO TID capsule 07/18/18 Insulin Sliding Scale [Novolog Vial Sliding Scale -] 1 vial SQ ACHS units 07/18 Memantine HCl [Namenda -] 10 mg PO BID tablet 07/18/18 Mirtazapine [Remeron -] 15 mg PO HS tablet 07/18/18 Sitagliptin Phosphate [Januvia -] 25 mg PO DAILY@0700 tab 07/18/18 Family Disease History - Family Disease History Family History: Unable to Obtain Review of Systems Unable to obtain ROS, reason: Dementia Physical Examination Vital Signs: Vital Signs Temperature 98.9 F 07/14/18 14:57 Pulse Rate 99 H 07/14/18 14:57 Respiratory Rate 16 07/14/18 14:57 Blood Pressure 113/69 07/14/18 14:57 O2 Sat by Pulse Oximetry (%) 97 07/14/18 14:57 Constitutional: Yes: Cachectic Neck: Yes: WNL, Supple Cardiovascular: Yes: WNL, Regular Rate and Rhythm Respiratory: Yes: WNL, Regular, CTA Bilaterally Gastrointestinal: Yes: WNL, Normal Bowel Sounds, Soft Musculoskeletal: Yes: WNL Extremities: Yes: WNL Edema: No Labs: CBC, BMP 07/14/18 06:15 07/14/18 06:00 Problem List - Problems (1) Altered mental status Assessment/Plan: Due to progression of dementia vx infectious encephalopathy Await Urine culture Code(s): R41.82 - ALTERED MENTAL STATUS, UNSPECIFIED (2) Advanced dementia Assessment/Plan: Cont namenda/seroquel/xanax Code(s): F03.90 - UNSPECIFIED DEMENTIA WITHOUT BEHAVIORAL DISTURBANCE (3) Diabetes Assessment/Plan: Cont sliding scale w/ coverage/metformin/januvia Code(s): E11.9 - TYPE 2 DIABETES MELLITUS WITHOUT COMPLICATIONS (4) HTN (hypertension) Assessment/Plan: BP stable Cont losartan Code(s): I10 - ESSENTIAL (PRIMARY) HYPERTENSION
--- NOTE | 2018-07-14 18:56 | CONSULT ---
Consult - text type - Consultation Consultation Note: NEUROLOGY CONSULTATION is greatly appreciated: Events reviewed, patient examined with family and caregivers at the bedside. Current medications obtained from current pill containers. These indicate that the patient is followed by Drs. Valerie Johnson and Usama Cheney. This 72 yo RH woman lives with family. PMH sig for HTN, DM and chronic psychiatric disease and progressive dementia. Currently maintained on: Metformin, Losartan, Galantamine ER 24 mg; Clonazepam 0.5 mg BID; and Quetiapine 200 mg QHS. According to the family, the Galantamine, clonazepine and quetiapine were just started by Dr. Cheney on 07/10/18 (the start date on the bottles) Family relates that patient does not recognize family members at baseline but that she has been increasingly agitated and combative over the last few weeks associated with deterioration of gait and recently increased falls. Recent () admission for UTI. Now admitted after 3 days of intractable Nausea and vomiting. Now on Levaquin for presumed recurrent UTI. CT of head (reviewed): Atrophy without traumatic changes. CORY: Left temporal ecchymosis. No Stover's signs. No bruits. Normal neck ROM NEURO: Awake, alert. Follows no commands. Gibberish speech. Full coates to threat. No facial. Tolerated PO dinner without difficulty. Moves all fours symmetrically. Normal reflexes except reduced AJs. Downgoing toes. IMP: Non-focal exam sig for Severe, B/L cerebral dysfunction (c/w Advanced Alzheimer or Frontotemporal dementia). Nausea and vomiting could be due to initiation of Galantamine Rx. SUGGEST: Observe off Galantamine. OK to use low-dose benzodiazepines until we can confirm how long the patient has been on them to avoid benzo withdrawal. Titrate quetiapine slowly upward, on a BID basis, to control agitation. I have made Dr. Cheney aware of his patient's admission. He will assume care in the AM Thank you very much, Rafael Mari MD
[2018-07-14] MEDS: DEXTROSE 5%-0.45% SALINE 1,000 ML IV SCH (19:35)
[2018-07-14] MEDS: MIRTAZAPINE 15 MG TABLET (FP) PO SCH (21:19)
[2018-07-14] MEDS: QUEtiapine FUMARATE 25 MG TABLET (FP) PO SCH (21:19)
[2018-07-15] MEDS: DEXTROSE 5%-0.45% SALINE 1,000 ML IV SCH ×2 (03:15→06:53)
[2018-07-15] MEDS: INSULIN SLIDING SCALE (NOVOLOG) 1 VIAL SQ SCH ×4 (06:12→21:40)
[2018-07-15] MEDS: sitaGLIPtin PHOSPHATE 25 MG TABLET (FP) PO SCH (06:12)
[2018-07-15] MEDS: metFORMIN HCL 500 MG TABLET (FP) PO SCH ×2 (06:12→17:04)
[2018-07-15] MEDS: MEMANTINE HCL 10 MG TABLET (FP) PO SCH ×2 (10:05→21:39)
[2018-07-15] MEDS: HEPARIN NA (PORCINE) 5,000 UNITS/ML 1ML VIAL SQ SCH ×2 (10:05→21:40)
[2018-07-15] MEDS: LOSARTAN POTASSIUM 25 MG TABLET PO SCH (10:11)
--- NOTE | 2018-07-15 21:29 | PN ---
Progress Note, Physician History of Present Illness: No new complaints - Current Medication List Current Medications: Active Medications Acetaminophen (Tylenol -) 650 mg PO Q6H PRN PRN Reason: PAIN LEVEL 1-5 AND/OR FEVER Alprazolam (Xanax -) 0.25 mg PO Q8H PRN PRN Reason: ANXIETY Heparin Sodium (Porcine) (Heparin -) 5,000 unit SQ BID [facility] Last Admin: 07/15/18 10:05 Dose: 5,000 unit Dextrose/Sodium Chloride (D5-1/2ns -) 1,000 mls @ 75 mls/hr IV ASDIR [facility] Last Admin: 07/15/18 06:53 Dose: 75 mls/hr Levofloxacin (Levaquin 500 Mg Premixed Ivpb -) 500 mg in 100 mls @ 100 mls/hr IVPB DAILY [facility]; Protocol Last Admin: 07/15/18 10:04 Dose: 100 mls/hr Insulin Aspart (Novolog Vial Sliding Scale -) 1 vial SQ ACHS [facility]; Protocol Last Admin: 07/15/18 16:30 Dose: Not Given Losartan Potassium (Cozaar -) 25 mg PO DAILY [facility] Last Admin: 07/15/18 10:11 Dose: Not Given Memantine (Namenda -) 10 mg PO BID [facility] Last Admin: 07/15/18 10:05 Dose: 10 mg Metformin HCl (Glucophage -) 500 mg PO BIDAC [facility] Last Admin: 07/15/18 17:04 Dose: 500 mg Mirtazapine (Remeron -) 15 mg PO HS [facility] Last Admin: 07/14/18 21:19 Dose: 15 mg Quetiapine Fumarate (Seroquel -) 50 mg PO HS [facility] Last Admin: 07/14/18 21:19 Dose: 50 mg Sitagliptin Phosphate (Januvia -) 25 mg PO DAILY@0700 [facility] Last Admin: 07/15/18 06:12 Dose: 25 mg - Objective Vital Signs: Vital Signs Temperature 98.2 F 07/15/18 15:48 Pulse Rate 102 H 07/15/18 15:48 Respiratory Rate 18 07/15/18 15:48 Blood Pressure 127/43 L 07/15/18 15:48 O2 Sat by Pulse Oximetry (%) 96 07/15/18 09:00 Neck: Yes: WNL, Supple Cardiovascular: Yes: WNL, Regular Rate and Rhythm Respiratory: Yes: WNL, Regular, CTA Bilaterally Gastrointestinal: Yes: WNL, Normal Bowel Sounds, Soft Labs: CBC, BMP 07/14/18 06:15 07/14/18 06:00 INR, PTT INR 1.07 (0.83-1.09) 07/13/18 20:24 Problem List - Problems (1) Altered mental status Assessment/Plan: Due to progression of dementia vx infectious encephalopathy Await Urine culture Cont IV antibxs Code(s): R41.82 - ALTERED MENTAL STATUS, UNSPECIFIED (2) Advanced dementia Assessment/Plan: Cont namenda/seroquel/xanax Code(s): F03.90 - UNSPECIFIED DEMENTIA WITHOUT BEHAVIORAL DISTURBANCE (3) Diabetes Assessment/Plan: Cont sliding scale w/ coverage/metformin/januvia Code(s): E11.9 - TYPE 2 DIABETES MELLITUS WITHOUT COMPLICATIONS (4) HTN (hypertension) Assessment/Plan: BP stable Cont losartan Code(s): I10 - ESSENTIAL (PRIMARY) HYPERTENSION
[2018-07-15] MEDS: QUEtiapine FUMARATE 25 MG TABLET (FP) PO SCH (21:38)
[2018-07-15] MEDS: MIRTAZAPINE 15 MG TABLET (FP) PO SCH (21:38)
[2018-07-16] MEDS: INSULIN SLIDING SCALE (NOVOLOG) 1 VIAL SQ SCH ×4 (06:14→21:06)
[2018-07-16] MEDS: metFORMIN HCL 500 MG TABLET (FP) PO SCH ×2 (06:15→18:03)
[2018-07-16] MEDS: sitaGLIPtin PHOSPHATE 25 MG TABLET (FP) PO SCH (06:15)
[2018-07-16] MEDS: LOSARTAN POTASSIUM 25 MG TABLET PO SCH (09:57)
[2018-07-16] MEDS: MEMANTINE HCL 10 MG TABLET (FP) PO SCH ×2 (09:57→21:07)
[2018-07-16] MEDS: HEPARIN NA (PORCINE) 5,000 UNITS/ML 1ML VIAL SQ SCH ×2 (09:57→21:05)
[2018-07-16] MEDS: ALPRAZolam 0.25 MG TABLET PO PRN ×2 (09:57→22:12)
[2018-07-16] MEDS: DEXTROSE 5%-0.45% SALINE 1,000 ML IV SCH (11:50)
--- NOTE | 2018-07-16 17:07 | PN ---
Progress Note, Physician History of Present Illness: No new complaints - Current Medication List Current Medications: Active Medications Acetaminophen (Tylenol -) 650 mg PO Q6H PRN PRN Reason: PAIN LEVEL 1-5 AND/OR FEVER Alprazolam (Xanax -) 0.25 mg PO Q8H PRN PRN Reason: ANXIETY Last Admin: 07/16/18 09:57 Dose: 0.25 mg Heparin Sodium (Porcine) (Heparin -) 5,000 unit SQ BID [facility] Last Admin: 07/16/18 09:57 Dose: 5,000 unit Dextrose/Sodium Chloride (D5-1/2ns -) 1,000 mls @ 75 mls/hr IV ASDIR [facility] Last Admin: 07/16/18 11:50 Dose: 75 mls/hr Levofloxacin (Levaquin 500 Mg Premixed Ivpb -) 500 mg in 100 mls @ 100 mls/hr IVPB DAILY [facility]; Protocol Last Admin: 07/16/18 09:57 Dose: 100 mls/hr Insulin Aspart (Novolog Vial Sliding Scale -) 1 vial SQ ACHS [facility]; Protocol Last Admin: 07/16/18 16:25 Dose: 2 units Losartan Potassium (Cozaar -) 25 mg PO DAILY [facility] Last Admin: 07/16/18 09:57 Dose: 25 mg Memantine (Namenda -) 10 mg PO BID [facility] Last Admin: 07/16/18 09:57 Dose: 10 mg Metformin HCl (Glucophage -) 500 mg PO BIDAC [facility] Last Admin: 07/16/18 06:15 Dose: 500 mg Mirtazapine (Remeron -) 15 mg PO HS [facility] Last Admin: 07/15/18 21:38 Dose: 15 mg Quetiapine Fumarate (Seroquel -) 50 mg PO HS [facility] Last Admin: 07/15/18 21:38 Dose: 50 mg Sitagliptin Phosphate (Januvia -) 25 mg PO DAILY@0700 [facility] Last Admin: 07/16/18 06:15 Dose: 25 mg - Objective Vital Signs: Vital Signs Temperature 98.3 F 07/16/18 15:40 Pulse Rate 79 07/16/18 15:40 Respiratory Rate 20 07/16/18 15:40 Blood Pressure 106/44 L 07/16/18 15:40 O2 Sat by Pulse Oximetry (%) 96 07/15/18 21:00 Neck: Yes: WNL, Supple Cardiovascular: Yes: WNL, Regular Rate and Rhythm Respiratory: Yes: WNL, Regular, CTA Bilaterally Gastrointestinal: Yes: WNL, Normal Bowel Sounds, Soft Labs: CBC, BMP 07/14/18 06:15 07/14/18 06:00 INR, PTT INR 1.07 (0.83-1.09) 07/13/18 20:24 Problem List - Problems (1) Altered mental status Assessment/Plan: Due to progression of dementia vx infectious encephalopathy Urine culture is negative DC IV antibxs PT eval DC planning to SNF Code(s): R41.82 - ALTERED MENTAL STATUS, UNSPECIFIED (2) Advanced dementia Assessment/Plan: Cont namenda/seroquel/xanax Code(s): F03.90 - UNSPECIFIED DEMENTIA WITHOUT BEHAVIORAL DISTURBANCE (3) Diabetes Assessment/Plan: Cont sliding scale w/ coverage/metformin/januvia Code(s): E11.9 - TYPE 2 DIABETES MELLITUS WITHOUT COMPLICATIONS (4) HTN (hypertension) Assessment/Plan: BP stable Cont losartan Code(s): I10 - ESSENTIAL (PRIMARY) HYPERTENSION
[2018-07-16] MEDS ORDERED: INSULIN (NOVOLOG) ASPART 100 UNITS/ML 10ML VIAL ONE (20:52)
[2018-07-16] MEDS: QUEtiapine FUMARATE 25 MG TABLET (FP) PO SCH (21:06)
[2018-07-16] MEDS: MIRTAZAPINE 15 MG TABLET (FP) PO SCH (21:06)
[2018-07-17] MEDS: INSULIN SLIDING SCALE (NOVOLOG) 1 VIAL SQ SCH ×4 (06:09→21:42)
[2018-07-17] MEDS: metFORMIN HCL 500 MG TABLET (FP) PO SCH ×2 (06:10→18:02)
[2018-07-17] MEDS: sitaGLIPtin PHOSPHATE 25 MG TABLET (FP) PO SCH (06:10)
[2018-07-17] MEDS: LOSARTAN POTASSIUM 25 MG TABLET PO SCH (10:13)
[2018-07-17] MEDS: HEPARIN NA (PORCINE) 5,000 UNITS/ML 1ML VIAL SQ SCH ×3 (10:14→21:30)
[2018-07-17] MEDS: MEMANTINE HCL 10 MG TABLET (FP) PO SCH ×4 (10:14→21:30)
[2018-07-17] MEDS: DOCUSATE SODIUM 100 MG CAPSULE (FP) PO SCH ×2 (13:21→21:28)
[2018-07-17] MEDS: ALPRAZolam 0.25 MG TABLET PO PRN ×2 (13:21→21:30)
[2018-07-17] MEDS ORDERED: QUEtiapine FUMARATE 25 MG TABLET (FP) PO ONE (18:00)
--- NOTE | 2018-07-17 21:09 | PN ---
Progress Note, Physician History of Present Illness: No new complaints - Current Medication List Current Medications: Active Medications Acetaminophen (Tylenol -) 650 mg PO Q6H PRN PRN Reason: PAIN LEVEL 1-5 AND/OR FEVER Alprazolam (Xanax -) 0.25 mg PO Q8H PRN PRN Reason: ANXIETY Last Admin: 07/17/18 13:21 Dose: 0.25 mg Docusate Sodium (Colace -) 100 mg PO TID [facility] Last Admin: 07/17/18 13:21 Dose: 100 mg Heparin Sodium (Porcine) (Heparin -) 5,000 unit SQ BID [facility] Last Admin: 07/17/18 10:18 Dose: Not Given Dextrose/Sodium Chloride (D5-1/2ns -) 1,000 mls @ 75 mls/hr IV ASDIR [facility] Last Admin: 07/16/18 11:50 Dose: 75 mls/hr Insulin Aspart (Novolog Vial Sliding Scale -) 1 vial SQ [facility]; Protocol Last Admin: 07/17/18 18:35 Dose: Not Given Losartan Potassium (Cozaar -) 25 mg PO DAILY [facility] Last Admin: 07/17/18 10:13 Dose: Not Given Memantine (Namenda -) 10 mg PO BID [facility] Last Admin: 07/17/18 12:42 Dose: 10 mg Metformin HCl (Glucophage -) 500 mg PO BIDAC [facility] Last Admin: 07/17/18 18:02 Dose: 500 mg Mirtazapine (Remeron -) 15 mg PO HS [facility] Last Admin: 07/16/18 21:06 Dose: 15 mg Quetiapine Fumarate (Seroquel -) 50 mg PO [facility] Last Admin: 07/16/18 21:06 Dose: 50 mg Sitagliptin Phosphate (Januvia -) 25 mg PO DAILY@0700 [facility] Last Admin: 07/17/18 06:10 Dose: 25 mg - Objective Vital Signs: Vital Signs Temperature 97.3 F L 07/17/18 18:00 Pulse Rate 90 07/17/18 18:00 Respiratory Rate 21 H 07/17/18 18:00 Blood Pressure 128/83 07/17/18 18:00 O2 Sat by Pulse Oximetry (%) 96 07/15/18 21:00 Neck: Yes: WNL, Supple Cardiovascular: Yes: WNL, Regular Rate and Rhythm Respiratory: Yes: WNL, Regular, CTA Bilaterally Gastrointestinal: Yes: WNL, Normal Bowel Sounds, Soft Labs: CBC, BMP 07/14/18 06:15 07/14/18 06:00 INR, PTT INR 1.07 (0.83-1.09) 07/13/18 20:24 Problem List - Problems (1) Altered mental status Assessment/Plan: Due to progression of dementia vx infectious encephalopathy Cont to monitor off antibxs DC planning to SNF Code(s): R41.82 - ALTERED MENTAL STATUS, UNSPECIFIED (2) Advanced dementia Assessment/Plan: Cont namenda/seroquel/xanax Code(s): F03.90 - UNSPECIFIED DEMENTIA WITHOUT BEHAVIORAL DISTURBANCE (3) Diabetes Assessment/Plan: Cont sliding scale w/ coverage/metformin/januvia Code(s): E11.9 - TYPE 2 DIABETES MELLITUS WITHOUT COMPLICATIONS (4) HTN (hypertension) Assessment/Plan: BP stable Cont losartan Code(s): I10 - ESSENTIAL (PRIMARY) HYPERTENSION
[2018-07-17] MEDS ORDERED: INSULIN (NOVOLOG) ASPART 100 UNITS/ML 10ML VIAL ONE (21:19)
[2018-07-17] MEDS: MIRTAZAPINE 15 MG TABLET (FP) PO SCH (21:29)
[2018-07-17] MEDS: QUEtiapine FUMARATE 25 MG TABLET (FP) PO SCH (21:29)
[2018-07-18 02:44] VITALS: TEMP 98.2
[2018-07-18] MEDS: DOCUSATE SODIUM 100 MG CAPSULE (FP) PO SCH ×2 (06:09→13:48)
[2018-07-18] MEDS: metFORMIN HCL 500 MG TABLET (FP) PO SCH ×2 (06:09→17:31)
[2018-07-18] MEDS: sitaGLIPtin PHOSPHATE 25 MG TABLET (FP) PO SCH (06:09)
[2018-07-18] MEDS: INSULIN SLIDING SCALE (NOVOLOG) 1 VIAL SQ SCH ×3 (06:20→17:29)
[2018-07-18] MEDS: LOSARTAN POTASSIUM 25 MG TABLET PO SCH (10:15)
[2018-07-18] MEDS: MEMANTINE HCL 10 MG TABLET (FP) PO SCH (11:40)
[2018-07-18] MEDS: HEPARIN NA (PORCINE) 5,000 UNITS/ML 1ML VIAL SQ SCH (11:40)
[2018-07-18 18:50] VITALS: BP 107/71; PULSE 68
--- NOTE | 2018-07-25 02:17 | DS ---
Physical Examination Vital Signs: Vital Signs Temperature 98.2 F 07/18/18 10:00 Pulse Rate 68 07/18/18 18:49 Respiratory Rate 20 07/18/18 18:49 Blood Pressure 107/71 07/18/18 18:49 O2 Sat by Pulse Oximetry (%) 96 07/15/18 21:00 Constitutional: Yes: Cachectic Neck: Yes: WNL, Supple Cardiovascular: Yes: WNL, Regular Rate and Rhythm Respiratory: Yes: WNL, Regular, CTA Bilaterally Gastrointestinal: Yes: WNL, Normal Bowel Sounds, Soft Labs: CBC, BMP 07/14/18 06:15 07/14/18 06:00 Discharge Summary Reason For Visit: ACUTE DELIRIUM,ADVANCED DEMENTIA,RECURRENT FALLS Altered mental status HTN DIabetes Advanced dementia Functinal quadraplegia Hospital Course: Pt is a 72 yo w a hx of advanced dementia, schizophrenia(agressive behavior), DM , and HTN who presented to ER with non-stop nausea and vomiting and altered medtal status. She has also been constantly falling down and hitting her head. CT scan of the head was unremarkable and pt initially treated for UTI but antibxs were stopped due to negative urine cultures. Condition: Good - Instructions Diet, Activity, Other Instructions: 2 gram sodium and 2200 calorie diabetic diet Referrals: William Johnson MD [Primary Care Provider] - Disposition: HALFWAY FACILITY - Home Medications Comprehensive Discharge Medication List: Ambulatory Orders metFORMIN HCL [Metformin HCl] 500 mg PO BID 12/02/16 Quetiapine Fumarate [Seroquel -] 50 mg PO HS 05/28/17 Losartan Potassium [Cozaar -] 25 mg PO DAILY 06/17/18 Cholecalciferol (Vitamin D3) [Vitamin D3] 2,000 unit PO DAILY 07/14/18 Ferrous Sulfate 325 mg PO DAILY 07/14/18 Acetaminophen [Tylenol .Regular Strength -] 650 mg PO Q6H PRN tablet 07/18/18 Alprazolam [Xanax] 0.25 mg PO Q8H PRN tablet MDD 3 07/18/18 Docusate Sodium [Colace -] 100 mg PO TID capsule 07/18/18 Insulin Sliding Scale [Novolog Vial Sliding Scale -] 1 vial SQ ACHS units 07/18 Memantine HCl [Namenda -] 10 mg PO BID tablet 07/18/18 Mirtazapine [Remeron -] 15 mg PO HS tablet 07/18/18 Sitagliptin Phosphate [Januvia -] 25 mg PO DAILY@0700 tab 07/18/18
== END 2018-07-18 18:49 | DRG 56 ==
LOC: JER 17:37 → JERBED 22:56 → J6S 07-14 17:15
PROVIDERS: ADMIT Internal Medicine; ATTEND Internal Medicine
DX: G30.9 Alzheimer's disease, unspecified (principal); R53.2 Functional quadriplegia; G93.40 Encephalopathy, unspecified; R64 Cachexia; Z68.1 Body mass index [BMI] 19.9 or less, adult; R41.82 Altered mental status, unspecified; E11.9 Type 2 diabetes mellitus without complications; I10 Essential (primary) hypertension; G31.09 Other frontotemporal neurocognitive disorder; Z79.4 Long term (current) use of insulin
CPT/HCPCS: 36415; 70450-TC; 71045-TC-FY; 80053; 81003; 81015; 82550; 82553; 82962; 84484; 85025; 85610; 87086; 93005; 93010; 93306-TC; 93880-TC; 97116-GP; 97162-GP; 99283-25; J1644